=== PATIENT | male | born 1945 | race Caucasian/White ===

== ENCOUNTER 2017-03-21 20:03 | Emergency (ER) | payer BC, MEDICARE ==
[~2017-03-21 20:03] MED LIST: LANTUSP SQ; LORA0.5T PO; [UNRECOGNIZED DRUG - OTHER] SC
[2017-03-21 20:09] VITALS: BP 128/73; PULSE 125; RESP 20; TEMP 98.9; O2SAT 95
[2017-03-21 20:50] VITALS: BP 161/87; PULSE 101; RESP 18; O2SAT 96
[2017-03-21] MEDS ORDERED: METO25TA3 PO ×2 (20:50)
[2017-03-21] MEDS ORDERED: ZITH250T PO (20:50)
[2017-03-21] MEDS ORDERED: BENZ100 PO (20:50)
[2017-03-21] MEDS ORDERED: ASPI81CH37 CHEW (20:50)
[2017-03-21] MEDS ORDERED: APIDINJ SQ (20:50)
[2017-03-21] MEDS ORDERED: LANTUS2P SQ (20:50)
--- NOTE | 2017-03-21 21:22 | PD ---
HPI Chief Complaint: Cold / Flu Symptoms Time Seen by Provider: 21:10 Travel History International Travel<30 days: No Contact w/Intl Traveler<30days: No Traveled to known affect area: No History of Present Illness HPI This 71-year-old male is complaining of being sick since Sunday. He is having generalized myalgias, headache and cough. He feels like he is congested. He's been sick since Sunday. Sunday he went to [place] urgent care and was given prescription for Z-Golden and Tessalon Perles. He has not had any response to this. He did have a flu test done on that date which was negative. He has a history of diabetes for 6-7 years and is on insulin shots. He also has hypertension. He does feel short of breath with exertion. [facility] Past Medical History Diabetes: Yes Patient Takes Glucophage: No Diminished Hearing: No Hypertension: Yes Immunizations Current: Yes Tetanus Vaccination: Unknown Influenza Vaccination: Yes Past Surgical History Cholecystectomy: Yes Prostatectomy: Yes Social History Alcohol Use: No Tobacco Use: No Substance Use: No Allergies-Medications (Allergen,Severity, Reaction): Coded Allergies: No Known Allergies (Unverified , 03/21/17) Reported Meds & Prescriptions Reported Meds & Active Scripts Active Reported Aspirin Low Dose (Aspirin) 81 Mg Chew 81 Mg CHEW DAILY Metoprolol Tartrate 25 Mg Tab 25 Mg PO DAILY Metoprolol Tartrate 25 Mg Tab 25 Mg PO BID Apidra Inj (Insulin Glulisine Inj) 1,000 Unit/10 Ml Vial 24 Units SQ TID Lantus Inj (Insulin Glargine) 1,000 Unit/10 Ml Vial 60 Units SQ HS Tessalon Perles (Benzonatate) 100 Mg Cap 100 Mg PO TID PRN Zithromax (Azithromycin) 250 Mg Tab 250 Mg PO DIRECTED Take 2 tabs (500 mg) on day 1 then 1 tab daily x 4 days. Review of Systems General / Constitutional: Positive: Fever, Chills Eyes: No: Diploplia, Blurred Vision HENT: Positive: Headaches Cardiovascular: No: Chest Pain or Discomfort, Palpitations Respiratory: Positive: Cough, Shortness of Breath Gastrointestinal: No: Nausea, Vomiting Genitourinary: No: Urgency, Frequency Neurologic: No: Weakness, Dizziness Psychiatric: No: Anxiety Physical Exam Narrative GENERAL: Well-developed male SKIN: Focused skin assessment warm/dry. HEAD: Atraumatic. Normocephalic. EYES: Pupils equal and round. No scleral icterus. No injection or drainage. ENT: No nasal bleeding or discharge. Mucous membranes pink and moist. NECK: Trachea midline. No JVD. CARDIOVASCULAR: Regular rate and rhythm. No murmur appreciated. RESPIRATORY: No accessory muscle use. There are scattered rhonchi Breath sounds equal bilaterally. GASTROINTESTINAL: Abdomen soft, non-tender, nondistended. Hepatic and splenic margins not palpable. MUSCULOSKELETAL: No obvious deformities. No clubbing. No cyanosis. No edema. NEUROLOGICAL: Awake and alert. No obvious cranial nerve deficits. Motor grossly within normal limits. Normal speech. PSYCHIATRIC: Appropriate mood and affect; insight and judgment normal. Data Data Last Documented VS Vital Signs Date Time Temp Pulse Resp B/P (MAP) Pulse Ox O2 Delivery O2 Flow Rate FiO2 03/21/17 20:50 101 96 Room Air 03/21/17 20:50 18 161/87 (111) 03/21/17 20:09 98.9 Orders Orders Complete Blood Count With Diff (03/21/17 21:19) Basic Metabolic Panel (Bmp) (03/21/17 21:19) Chest, Pa & Lat (03/21/17 21:19) Albuterol Neb (Albuterol Neb) (03/21/17 21:30) Labs Laboratory Tests Test 03/21/17 21:45 White Blood Count 11.2 TH/MM3 Red Blood Count 5.68 MIL/MM3 Hemoglobin 17.1 GM/DL Hematocrit 50.5 % Mean Corpuscular Volume 88.9 FL Mean Corpuscular Hemoglobin 30.2 PG Mean Corpuscular Hemoglobin Concent 33.9 % Red Cell Distribution Width 13.3 % Platelet Count 257 TH/MM3 Mean Platelet Volume 7.9 FL Neutrophils (%) (Auto) 61.9 % Lymphocytes (%) (Auto) 20.3 % Monocytes (%) (Auto) 10.9 % Eosinophils (%) (Auto) 4.5 % Basophils (%) (Auto) 2.4 % Neutrophils # (Auto) 6.9 TH/MM3 Lymphocytes # (Auto) 2.3 TH/MM3 Monocytes # (Auto) 1.2 TH/MM3 Eosinophils # (Auto) 0.5 TH/MM3 Basophils # (Auto) 0.3 TH/MM3 CBC Comment DIFF FINAL Differential Comment Blood Urea Nitrogen 14 MG/DL Creatinine 1.20 MG/DL Random Glucose 389 MG/DL Calcium Level 9.1 MG/DL Sodium Level 134 MEQ/L Potassium Level 3.6 MEQ/L Chloride Level 101 MEQ/L Carbon Dioxide Level 23.8 MEQ/L Anion Gap 9 MEQ/L Estimat Glomerular Filtration Rate 60 ML/MIN MDM Medical Decision Making Medical Screen Exam Complete: Yes Emergency Medical Condition: Yes Medical Record Reviewed: Yes Differential Diagnosis Differential includes influenza, pneumonia, URI Narrative Course X-rays read as negative. There is a little bit of streaking in the left side of the lung. White count is slightly elevated at 11,000 patient may have a partially treated pneumonia. He will be given a week's worth of Augmentin to take in addition to Zithromax he did benefit from a nebulizer treatment and will also be given a prescription for albuterol. Impression is acute bronchitis , possible early pneumonia Diagnosis Primary Impression: Acute bronchitis Qualified Codes: J20.9 - Acute bronchitis, unspecified Scripts Albuterol 18 GM Inh (Ventolin Hfa 18 GM Inh) 90 Mcg/Act Aer 2 PUFF INH Q4-6H Y for SHORTNESS OF BREATH, #1 INHALER 0 Refills Prov: Weston Vargas MD 03/21/17 Amoxicillin-Clavulanate (Augmentin) 500-125 mg Tab 500 MG PO Q8H for Infection for 7 Days, TAB 0 Refills Prov: Weston Vargas MD 03/21/17 Disposition: 01 DISCHARGE HOME Condition: Stable Weston Vargas MD Mar 21, 2017 21:22
[2017-03-21] MEDS ORDERED: RESP: ALBUTEROL 2.5 MG/3 ML NEB (SCH) NEB ONE (21:30)
[2017-03-21 21:56] LABS: AUTOMATED NEUTROPHIL # 6.9 TH/MM3 (1.8-7.7); BASOPHIL # 0.3 TH/MM3 (0-0.2); BASOPHIL % 2.4 % (0.0-2.0); EOSINOPHIL # 0.5 TH/MM3 (0-0.4); EOSINOPHIL % 4.5 % (0.0-4.0); HEMATOCRIT 50.5 % (39.0-51.0); HEMO FLAGS DIFF FINAL; LYMPH % 20.3 % (9.0-44.0); LYMPHOCYTE # 2.3 TH/MM3 (1.0-4.8); MEAN CELL VOLUME 88.9 FL (80.0-100.0); MEAN CORPUSCULAR HEMOGLOBIN 30.2 PG (27.0-34.0); MEAN CORPUSCULAR HGB CONC 33.9 % (32.0-36.0); MONO % 10.9 % (0.0-8.0); NEUT % 61.9 % (16.0-70.0); PLATELET COUNT 257 TH/MM3 (150-450); RED BLOOD COUNT 5.68 MIL/MM3 (4.50-5.90); RED CELL DISTRIBUTION WIDTH 13.3 % (11.6-17.2); WHITE BLOOD COUNT 11.2 TH/MM3 (4.0-11.0)
--- NOTE | 2017-03-21 21:57 | RADRPT ---
EXAM DATE/TIME: 03/21/2017 21:27 [facility] COMPARISON: No previous studies available for comparison. INDICATIONS : Flu-like symptoms for 5 days MEDICAL HISTORY : None. SURGICAL HISTORY : None. ENCOUNTER: Initial ACUITY: 4 - 6 days PAIN SCORE: 0/10 LOCATION: Bilateral chest FINDINGS: PA and lateral views of the chest demonstrate the lungs to be symmetrically aerated without evidence of mass, infiltrate or effusion. The cardiomediastinal contours are unremarkable. Osseous structure s are intact. CONCLUSION: No evidence of acute cardiopulmonary disease. Rahul Baldwin MD on March 21, 2017 at 21:55 Board Certified Radiologist. This report was verified electronically.
[2017-03-21 22:05] LABS: POTASSIUM 3.6 MEQ/L (3.5-5.1)
[2017-03-21 22:08] LABS: BICARBONATE 23.8 MEQ/L (21.0-32.0)
[2017-03-21] MEDS ORDERED: VENTAER INH (22:30)
[2017-03-21] MEDS ORDERED: AUGM500T7 PO (22:30)
[2017-03-21] MEDS ORDERED: AMOXICILLIN/CLAVULANATE K 500 MG TAB PO ONE (22:30)
[2017-03-21 22:37] VITALS: BP 158/86; PULSE 92; RESP 18; O2SAT 97
== END 2017-03-21 22:49 | disposition home or self-care (01) ==
LOC: PHED 20:03
DX: J20.9 Acute bronchitis, unspecified (principal); E11.9 Type 2 diabetes mellitus without complications; I10 Essential (primary) hypertension
CPT/HCPCS: 71020; 80048; 85025; 94664; 99284; J7613

== ENCOUNTER 2017-03-30 15:37 | Inpatient (IN) | payer MEDICARE ==
[2017-03-30] VITALS (9 sets, daily range): BP systolic 124–170; BP diastolic 70–85; PULSE 70–99; RESP 18–20; TEMP 95.9–97.4; O2SAT 96–98
[~2017-03-30 15:37] MED LIST changes: +APIDINJ SQ; +ASPI81CH37 CHEW; +AUGM500T7 PO; +BENZ100 PO; +LANTUS2P SQ; -LANTUSP SQ; -LORA0.5T PO; +METO25TA3 PO; +VENTAER INH; +ZITH250T PO; -[UNRECOGNIZED DRUG - OTHER] SC
[2017-03-30] MEDS ORDERED: ASPIRIN 81 MG CHEW TAB PO ONE (16:15)
[2017-03-30] MEDS ORDERED: SODIUM CHLORIDE 0.9% FLUSH 10 ML FLUSH IVF PRN (16:15)
[2017-03-30 16:23] LABS: AUTOMATED NEUTROPHIL # 6.2 TH/MM3 (1.8-7.7); BASOPHIL # 0.1 TH/MM3 (0-0.2); BASOPHIL % 1.2 % (0.0-2.0); EOSINOPHIL # 0.1 TH/MM3 (0-0.4); EOSINOPHIL % 0.9 % (0.0-4.0); HEMATOCRIT 47.3 % (39.0-51.0); LYMPH % 12.7 % (9.0-44.0); MEAN CELL VOLUME 90.3 FL (80.0-100.0); MEAN CORPUSCULAR HEMOGLOBIN 29.9 PG (27.0-34.0); MEAN CORPUSCULAR HGB CONC 33.1 % (32.0-36.0); MONO % 5.3 % (0.0-8.0); NEUT % 79.9 % (16.0-70.0); PLATELET COUNT 254 TH/MM3 (150-450); RED BLOOD COUNT 5.23 MIL/MM3 (4.50-5.90); RED CELL DISTRIBUTION WIDTH 13.8 % (11.6-17.2); WHITE BLOOD COUNT 7.8 TH/MM3 (4.0-11.0)
--- NOTE | 2017-03-30 16:26 | PD ---
HPI Chief Complaint: Chest Pain Time Seen by Provider: 16:00 Travel History International Travel<30 days: No Contact w/Intl Traveler<30days: No Traveled to known affect area: No History of Present Illness HPI 71-year-old male with history of CAD, 2 cardiac stents, hypertension, diabetes, here for evaluation of chest pain. The patient was recently diagnosed with pneumonia and treated with antibiotics. His pneumonia symptoms of shortness of breath and cough have improved. He states that for the last week he has been having intermittent pain in his bilateral shoulders that radiate down his bilateral arms. He states that this usually occurs with exertion. Today on exertion about an hour and a half prior to arrival he began to experience substernal chest pressure. He states that the bilateral shoulder pain is very similar pain that he experienced with his previous CO. No paresthesias or motor deficits. No dyspnea. No hemoptysis. No history of DVT or PE. The patient is from [place] and has no local physicians. He took two 81mg ASA [employer]. PFSH Past Medical History Cardiovascular Problems: Yes Diabetes: Yes Patient Takes Glucophage: No Diminished Hearing: No Hypertension: Yes Immunizations Current: Yes Past Surgical History Cholecystectomy: Yes Prostatectomy: Yes Social History Alcohol Use: Yes Tobacco Use: No Substance Use: No Allergies-Medications (Allergen,Severity, Reaction): Coded Allergies: No Known Allergies (Unverified , 03/30/17) Reported Meds & Prescriptions Reported Meds & Active Scripts Active Ventolin Hfa 18 GM Inh (Albuterol Sulfate) 90 Mcg/Act Aer 2 Puff INH Q4-6H PRN Reported Aspirin Low Dose (Aspirin) 81 Mg Chew 81 Mg CHEW DAILY Metoprolol Tartrate 25 Mg Tab 25 Mg PO DAILY Metoprolol Tartrate 25 Mg Tab 25 Mg PO BID Apidra Inj (Insulin Glulisine Inj) 1,000 Unit/10 Ml Vial 24 Units SQ TID Lantus Inj (Insulin Glargine) 1,000 Unit/10 Ml Vial 60 Units SQ HS Tessalon Perles (Benzonatate) 100 Mg Cap 100 Mg PO TID PRN Zithromax (Azithromycin) 250 Mg Tab 250 Mg PO DIRECTED Take 2 tabs (500 mg) on day 1 then 1 tab daily x 4 days. Review of Systems Except as stated in HPI: all other systems reviewed are Neg Physical Exam Narrative GENERAL: Well-developed, well-nourished, comfortable, no apparent distress. SKIN: Focused skin assessment warm/dry. HEAD: Atraumatic. Normocephalic. EYES: Pupils equal and round. No scleral icterus. No injection or drainage. ENT: Mucous membranes pink and moist. NECK: Trachea midline. No JVD. CARDIOVASCULAR: Regular rate and rhythm. Distal pulses brisk and equal bilaterally. RESPIRATORY: No accessory muscle use. Clear to auscultation. Breath sounds equal bilaterally. GASTROINTESTINAL: Abdomen soft, non-tender, nondistended. MUSCULOSKELETAL: No obvious deformities. No clubbing. No cyanosis. No edema. NEUROLOGICAL: Awake and alert. No obvious cranial nerve deficits. Motor grossly within normal limits. Normal speech. PSYCHIATRIC: Appropriate mood and affect; insight and judgment normal. Data Data Last Documented VS Vital Signs Date Time Temp Pulse Resp B/P (MAP) Pulse Ox O2 Delivery O2 Flow Rate FiO2 03/30/17 17:24 91 20 134/71 (92) 96 03/30/17 15:47 97.4 Orders Orders Electrocardiogram (03/30/17 16:07) Basic Metabolic Panel (Bmp) (03/30/17 16:07) Ckmb (Isoenzyme) Profile (03/30/17 16:07) Complete Blood Count With Diff (03/30/17 16:07) Prothrombin Time / Inr (Pt) (03/30/17 16:07) Act Partial Throm Time (Ptt) (03/30/17 16:07) Troponin I (03/30/17 16:07) Chest, Single Ap (03/30/17 16:07) Ecg Monitoring (03/30/17 16:07) Bilateral Bp Monitoring (03/30/17 16:07) Iv Access Insert/Monitor (03/30/17 16:07) Oximetry (03/30/17 16:07) Aspirin Chew (Aspirin Chew) (03/30/17 16:15) Sodium Chloride 0.9% Flush (Ns Flush) (03/30/17 16:15) Insulin Human Regular Inj (Novolin R Inj (03/30/17 18:00) Labs Laboratory Tests Test 03/30/17 16:20 03/30/17 16:48 White Blood Count 7.8 TH/MM3 Red Blood Count 5.23 MIL/MM3 Hemoglobin 15.7 GM/DL Hematocrit 47.3 % Mean Corpuscular Volume 90.3 FL Mean Corpuscular Hemoglobin 29.9 PG Mean Corpuscular Hemoglobin Concent 33.1 % Red Cell Distribution Width 13.8 % Platelet Count 254 TH/MM3 Mean Platelet Volume 8.3 FL Neutrophils (%) (Auto) 79.9 % Lymphocytes (%) (Auto) 12.7 % Monocytes (%) (Auto) 5.3 % Eosinophils (%) (Auto) 0.9 % Basophils (%) (Auto) 1.2 % Neutrophils # (Auto) 6.2 TH/MM3 Lymphocytes # (Auto) 1.0 TH/MM3 Monocytes # (Auto) 0.4 TH/MM3 Eosinophils # (Auto) 0.1 TH/MM3 Basophils # (Auto) 0.1 TH/MM3 CBC Comment DIFF FINAL Differential Comment Prothrombin Time 11.1 SEC Prothromb Time International Ratio 1.0 RATIO Activated Partial Thromboplast Time 26.8 SEC Blood Urea Nitrogen 16 MG/DL Creatinine 1.10 MG/DL Random Glucose 477 MG/DL Calcium Level 8.9 MG/DL Sodium Level 130 MEQ/L Potassium Level 4.3 MEQ/L Chloride Level 99 MEQ/L Carbon Dioxide Level 20.8 MEQ/L Anion Gap 10 MEQ/L Estimat Glomerular Filtration Rate 66 ML/MIN Total Creatine Kinase 77 U/L Troponin I 0.02 NG/ML [facility] Medical Decision Making Medical Screen Exam Complete: Yes Emergency Medical Condition: Yes Interpretation(s) EKG: Sinus, rate 89, normal axis, normal intervals, no acute ischemic abnormality. Differential Diagnosis ACS, pneumothorax, pericarditis, PE, pneumonia Narrative Course Vital signs show heart rate 90, blood pressure 140/81, pulse ox 98% on room air , oral temp of 97.4F. CBC is unremarkable. BMP is remarkable for sodium 130, random glucose 477. Bicarbonate is slightly low at 20.8. I do not believe he is in DKA. Cardiac enzymes Chest x-ray: Minimal right lung base atelectasis. The patient took two 81mg ASA today and was given another 2 after arriving to the emergency department. He has been chest pain-free while in the emergency Department, however reports that if he exerts himself his pain will return. The patient has history of heart disease with 2 coronary stents as well as several risk factors for coronary artery disease. Patient was given 10 units of IV insulin for his hyperglycemia. He was made aware of all findings and will be admitted to the chest pain center for further cardiac evaluation. He is amenable to this plan. Case discussed with hospitalist Dr Veliz who will admit the patient to her service. Diagnosis Primary Impression: Chest pain Qualified Codes: R07.9 - Chest pain, unspecified Additional Impression: Hyperglycemia Admitting Information Admitting Physician Requests: Manny Armando MD Mar 30, 2017 16:26
[2017-03-30 16:29] LABS: HEMO FLAGS DIFF FINAL
--- NOTE | 2017-03-30 16:48 | RADRPT ---
EXAM DATE/TIME: 03/30/2017 16:23 [facility] COMPARISON: CHEST SINGLE AP, April 10, 2012, 21:52. INDICATIONS : Chest pain. MEDICAL HISTORY : None. SURGICAL HISTORY : None. ENCOUNTER: Initial ACUITY: 1 day PAIN SCORE: 7/10 LOCATION: Bilateral chest FINDINGS: Minimal linear opacity in the right lung base. No new focal pleural or parenchymal opacities. Cardiom ediastinal contours are within normal limits. Bony thorax is intact. CONCLUSION: 1. Minimal right lung base atelectasis. Tomas Alexander MD on March 30, 2017 at 16:46 Board Certified Radiologist. This report was verified electronically.
[2017-03-30 17:05] LABS: POTASSIUM 4.3 MEQ/L (3.5-5.1)
[2017-03-30 17:09] LABS: BICARBONATE 20.8 MEQ/L (21.0-32.0)
[2017-03-30 17:11] LABS: APTT (PATIENT) 26.8 SEC (24.3-30.1); PROTHROMBIN TIME - PATIENT 11.1 SEC (9.8-11.6)
[2017-03-30] MEDS ORDERED: INSULIN HUMAN REGULAR 1,000 UNITS/10 ML VIAL IV PUSH ONE (18:00)
[2017-03-30] MEDS ORDERED: GLUCAGON 1 MG/ML VIAL OTHER PRN (18:30)
[2017-03-30] MEDS ORDERED: SODIUM CHLORIDE 0.9% FLUSH 10 ML FLUSH IV FLUSH PRN (18:30)
[2017-03-30] MEDS ORDERED: DEXTROSE 50% IN WATER 50 ML VIAL(D50) IV PUSH PRN (18:30)
[2017-03-30] MEDS ORDERED: ONDANSETRON HCL 4 MG/2 ML VIAL IV PUSH PRN (18:30)
[2017-03-30] MEDS ORDERED: NITROGLYCERIN 0.4 MG SL 25 TABS/BTL SL PRN (18:30)
[2017-03-30] MEDS ORDERED: BENZONATATE 100 MG CAP PO PRN (18:45)
[2017-03-30] MEDS ORDERED: ALBUTEROL SULFATE 90 MCG/ACT HFA 8 GM INHALER INH PRN (18:45)
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
[2017-03-30] MEDS: METOPROLOL TARTRATE 25 MG TAB PO SCH (21:00)
[2017-03-30] MEDS ORDERED: INSULIN DETEMIR 100 UNITS/ML VIAL SQ SCH (21:00)
[2017-03-30] MEDS: INSULIN ASPART SUPPLEMENTAL SCALE SQ SCH (22:23)
[2017-03-30] MEDS: SODIUM CHLORIDE 0.9% FLUSH 10 ML FLUSH IV FLUSH SCH (22:24)
[2017-03-30] MEDS: diphenhydrAMINE HCL 25 MG CAP PO PRN (23:01)
[2017-03-30] MEDS: ACETAMINOPHEN 500 MG CPLT PO PRN (23:01)
[2017-03-31] VITALS (16 sets, daily range): BP systolic 121–172; BP diastolic 64–93; PULSE 58–80; RESP 16–20; TEMP 95.8–98.4; O2SAT 97–98
--- NOTE | 2017-03-31 05:02 | EKG ---
Date Performed: 03/30/2017 Time Performed: 21:52:12 PTAGE: 71 years EKG: Sinus rhythm NORMAL ECG PREVIOUS TRACING : 03/30/2017 16.11 DOCTOR: John Handy Interpretating Date/Time 03/31/2017 05:02:08
--- NOTE | 2017-03-31 05:10 | EKG ---
Date Performed: 03/30/2017 Time Performed: 16:11:27 PTAGE: 71 years EKG: Sinus rhythm NORMAL ECG PREVIOUS TRACING : 04/10/2012 21.02 DOCTOR: John Handy Interpretating Date/Time 03/31/2017 05:05:34
[2017-03-31] MEDS: INSULIN ASPART SUPPLEMENTAL SCALE SQ SCH ×4 (08:00→20:49)
[2017-03-31] MEDS: METOPROLOL TARTRATE 25 MG TAB PO SCH ×2 (08:14→20:47)
[2017-03-31] MEDS: SODIUM CHLORIDE 0.9% FLUSH 10 ML FLUSH IV FLUSH SCH ×2 (08:15→20:48)
[2017-03-31] MEDS: INSULIN GLULISINE SQ SCH ×2 (08:15→18:00)
--- NOTE | 2017-03-31 08:19 | HHI.PR ---
Subjective Remarks Follow-up for chest pain and dyspnea. Patient denies any recurrence of chest pain or shoulder pain overnight. Denies any recurrence of shortness of breath overnight. He states he slept well. He states that he thinks he has a blockage. Objective Vitals Vital Signs Date Time Temp Pulse Resp B/P (MAP) Pulse Ox O2 Delivery O2 Flow Rate FiO2 03/31/17 05:36 97.4 78 20 161/87 (111) 98 03/31/17 02:00 144/74 (97) 03/31/17 00:00 95.8 73 20 172/93 (119) 97 03/30/17 23:00 73 03/30/17 20:23 90 18 141/80 (100) 97 Room Air 03/30/17 20:10 03/30/17 20:00 95.9 70 20 153/85 (107) 97 03/30/17 19:22 97 21 03/30/17 18:50 88 18 124/71 (88) 97 Room Air 03/30/17 17:24 91 20 134/71 (92) 96 03/30/17 16:17 90 20 140/81 (100) 98 145/70 (95) 03/30/17 16:11 96 03/30/17 15:47 97.4 99 20 170/80 (110) 98 I/O 03/30/17 03/30/17 03/30/17 03/31/17 03/31/17 03/31/17 07:00 15:00 23:00 07:00 15:00 23:00 Intake Total 360 ml Balance 360 ml Intake Oral 360 ml # Voids 3 Result Diagram: 03/30/17 1620 03/30/17 1648 Objective Remarks GENERAL: Pleasant well-developed well-nourished patient in no apparent distress. SKIN: Warm and dry. CARDIOVASCULAR: Regular rate and rhythm. No murmurs. RESPIRATORY: No accessory muscle use. Minimal crackles over the Right base which clear with coughing. GASTROINTESTINAL: Abdomen soft, non-tender, nondistended. MUSCULOSKELETAL: No lower extremity edema bilaterally. NEUROLOGICAL: Awake and alert. Normal speech. PSYCHIATRIC: Appropriate mood and affect; insight and judgment normal. Urinary Catheter: No Vascular Central Line Catheter: No A/P Problem List: (1) Chest pain ICD Code: R07.9 - Chest pain, unspecified Status: Acute (2) Dyspnea ICD Code: R06.00 - Dyspnea, unspecified Status: Acute (3) HTN (hypertension) ICD Code: I10 - Essential (primary) hypertension Status: Acute (4) Hyperglycemia ICD Code: R73.9 - Hyperglycemia, unspecified Status: Acute (5) DM2 (diabetes mellitus, type 2) ICD Code: E11.9 - Type 2 diabetes mellitus without complications (6) CAD (coronary artery disease) ICD Code: I25.10 - Atherosclerotic heart disease of [place] coronary artery without angina pectoris Assessment and Plan 71-year-old male with: Chest pain/Dyspnea: Worrisome for stable angina versus acute coronary syndrome. Patient does have known coronary disease; geophysical computer is in [place]. -EKGs 2 personally interpreted with normal sinus rhythm and no evidence of ischemia. -Troponin trended upward over 5 hours from 0.02-->0.04-->0.05. Because of this will obtain another EKG and set of cardiac enzymes this morning to make sure it has remained stable prior to stress testing. -Troponin obtained this morning decreased to 0.04. EKG #3 personally interpreted with sinus bradycardia, septal T wave inversion, and biphasic T waves anteriorly. Will order nuclear stress test. -Chest x-ray personally interpreted without evidence of cardiomegaly or consolidation. Radiologist indicates minimal R lung base atelectasis. Patient had minimal crackles on exam in this area which cleared with coughing. Order IS. -Continue beta eduin -325 mg po daily aspirin -Nitro SL prn chest pain -Follow-up Echo -Telemetry CAD: Patient with 2 stents from a similar episode to what he has described earlier. -Patient will continue with his aspirin, beta eduin and we'll follow on telemetry -Lipid profile ordered HTN: BP fluctuated yesterday but has become more persistently elevated overnight. -Continue metoprolol -Clonidine and enalapril prn for SBP/DBP >/= 160/90. -If remains elevated today may benefit from addition of BRYON inhibitor due to comorbidities. Diabetes Mellitus, Type 2: with hyperglycemia of 477 on presentation. Pseudohyponatremia present. Patient received 10 units of regular insulin in ED and 60 units Levemir and 3 units of Novolog last night. -BGL improved at 118 this morning. Continue bedside Accu-Cheks with sliding scale insulin. -Since patient is currently nothing by mouth, will hold his Apidra. -Repeat BMP this morning with resolved hyponatremia -Hemoglobin A1c ordered Hypokalemia: K+ 3.2. -40 mEq po KCl ordered. -Mg level 2.1. -Repeat serum K+ level at 1500 hours normal at 3.6. GI prophylaxis: Pepcid 20 mg po bid. DVT prophylaxis: SCDs; start heparin sq bid. Update: Myocardial perfusion scan positive with mild in severity, small in size reversible perfusion defect involving the anterior wall. Dr. Juares requests patient be transferred to the main hospital. Catheterization will occur Sunday. Cardiology consulted and transfer order placed. Will order diabetic heart healthy diet now and make patient nothing by mouth after midnight tomorrow night. Patient's BGLs have been in the 1 teens today due to nothing by mouth status. He is currently on 60 units of Levemir at night, but will decrease this to 30 units. Can continue Apidra if patient has available and use SSI as needed. Patient discussed with Dr. Veliz. Problem Qualifiers (1) Chest pain: Qualified Codes: R07.9 - Chest pain, unspecified Renae Mooney Mar 31, 2017 08:19
[2017-03-31] MEDS ORDERED: cloNIDine HCL 0.1 MG TAB PO PRN (09:15)
[2017-03-31] MEDS ORDERED: ENALAPRILAT 1.25 MG/ML VIAL IV PUSH PRN (09:15)
[2017-03-31] MEDS: FAMOTIDINE 20 MG TAB PO SCH ×2 (09:39→20:47)
[2017-03-31] MEDS: ASPIRIN EC 325 MG TABEC PO SCH (09:39)
[2017-03-31 10:09] LABS: BICARBONATE 25.7 MEQ/L (21.0-32.0); POTASSIUM 3.2 MEQ/L (3.5-5.1)
[2017-03-31] MEDS ORDERED: POTASSIUM CHLORIDE 20 MEQ CONTROLLED RELEASE TAB PO ONE (10:30)
[2017-03-31] MEDS ORDERED: REGADENOSON INJ 0.4 MG/5 ML SYR IV ONE (13:14)
--- NOTE | 2017-03-31 14:12 | EKG ---
Date Performed: 03/31/2017 Time Performed: 09:36:36 PTAGE: 71 years EKG: SINUS BRADYCARDIA NONSPECIFIC T-WAVE ABNORMALITY BORDERLINE ECG PREVIOUS TRACING : 03/30/2017 21.52 Compared to previous tracing,STT changes are new. DOCTOR: Venkat Bowen Interpretating Date/Time 03/31/2017 14:11:09
--- NOTE | 2017-03-31 14:13 | RADRPT ---
EXAM DATE/TIME: 03/31/2017 13:03 [facility] COMPARISON: No previous studies available for comparison. INDICATIONS : Substernal chest pain with dyspnea. Angina. Coronary artery disease. DOSE: 35 mCi Tc99m Myoview at stress. 11 mCi Tc99m Myoview at rest. 0.4 mg Lexiscan STRESS SYMPTOMS: Dyspnea and flushed. EJECTION FRACTION: 59% MEDICAL HISTORY : Hypertension. Diabetes mellitus type 2. SURGICAL HISTORY : Coronary artery stent. Rotator cuff, left. ENCOUNTER: Initial ACUITY: 2 days PAIN SCALE: 7/10 LOCATION: Substernal chest TECHNIQUE: The patient underwent pharmacologic stress with infusion of prescribed dose. Continuous ECG tracing was monitored during stress. Gated SPECT imaging was performed after stress and conventional SPECT i maging was performed at rest. The examination was performed on a SPECT/CT scanner, both attenuation and non-corrected datasets were reviewed. FINDINGS: DISTRIBUTION: The maximum perfused segment at stress is in the anterolateral wall. PERFUSION STUDY: The examination demonstrates a mild in severity, reversible perfusion defect involving the anterior w all. There is no associated wall motion abnormality. GATED STUDY: There is intact wall motion and thickening without hypokinetic or dyskinetic segments. CONCLUSION: 1. Mild in severity, small in size, reversible perfusion defect involving the anterior wall. The over all suspicion is low however, stress-induced myocardial ischemia is not excluded. RISK CATEGORY: Low (<1% Annual Mortality Rate) Jerod Leigh MD on March 31, 2017 at 14:08 Board Certified Radiologist. This report was verified electronically.
[2017-03-31 15:29] LABS: POTASSIUM 3.6 MEQ/L (3.5-5.1)
[2017-03-31 15:32] LABS: MAGNESIUM 2.1 MG/DL (1.5-2.5)
[2017-03-31] MEDS: HEPARIN SODIUM - SQ 10,000 UNITS/ML VIAL SQ SCH (16:44)
[2017-03-31] MEDS: diphenhydrAMINE HCL 25 MG CAP PO PRN (20:47)
[2017-03-31] MEDS: ACETAMINOPHEN 500 MG CPLT PO PRN (20:47)
[2017-03-31] MEDS: INSULIN DETEMIR 100 UNITS/ML VIAL SQ SCH (20:49)
[2017-04-01] VITALS (23 sets, daily range): BP systolic 112–150; BP diastolic 54–83; PULSE 54–83; RESP 16–18; TEMP 97.7–98.6; O2SAT 96–98
[2017-04-01] MEDS: HEPARIN SODIUM - SQ 10,000 UNITS/ML VIAL SQ SCH ×2 (05:07→18:13)
[2017-04-01 06:42] LABS: HDL CHOLESTEROL 35.3 MG/DL (40.0-60.0)
[2017-04-01] MEDS: INSULIN ASPART SUPPLEMENTAL SCALE SQ SCH ×4 (08:00→21:00)
[2017-04-01] MEDS: SODIUM CHLORIDE 0.9% FLUSH 10 ML FLUSH IV FLUSH SCH ×2 (08:25→21:10)
[2017-04-01] MEDS: ASPIRIN EC 325 MG TABEC PO SCH (08:25)
[2017-04-01] MEDS: FAMOTIDINE 20 MG TAB PO SCH ×2 (08:25→21:09)
[2017-04-01] MEDS: METOPROLOL TARTRATE 25 MG TAB PO SCH ×2 (08:25→21:09)
[2017-04-01] MEDS: INSULIN GLULISINE SQ SCH ×3 (08:26→17:45)
--- NOTE | 2017-04-01 11:11 | HHI.PR ---
Subjective Remarks Patient concerned about being nothing by mouth, is a diabetic BG this morning was 95 Plan for heart catheter however possibility of doing it today, I discussed with the nurse we will verify with Dr. jane the orbitread operator I will check acute Accu-Chek now if it's less than 100 will start D5 until getting confirmation about timing of the heart catheter Patient denied chest pain or short of breath currently or overnight Objective Vitals Vital Signs Date Time Temp Pulse Resp B/P (MAP) Pulse Ox O2 Delivery O2 Flow Rate FiO2 04/01/17 08:30 98 21 04/01/17 05:16 59 04/01/17 04:22 56 04/01/17 03:20 98.6 62 16 150/83 (105) 97 04/01/17 03:00 56 04/01/17 02:00 56 04/01/17 01:20 54 04/01/17 00:36 56 03/31/17 23:30 98.1 58 16 130/79 (96) 97 03/31/17 23:00 58 03/31/17 22:00 80 03/31/17 21:10 65 03/31/17 20:10 65 03/31/17 19:20 98.4 67 16 122/74 (90) 97 03/31/17 19:20 64 03/31/17 19:20 98.4 67 16 122/74 (90) 97 03/31/17 19:00 65 03/31/17 18:23 98.2 66 18 121/64 (83) 03/31/17 17:00 64 03/31/17 13:35 97.3 59 20 127/69 (88) 98 I/O 03/31/17 03/31/17 03/31/17 04/01/17 04/01/17 04/01/17 06:59 14:59 22:59 06:59 14:59 22:59 Intake Total 360 ml 240 ml 240 ml Balance 360 ml 240 ml 240 ml Intake Oral 360 ml 240 ml 240 ml # Voids 3 2 Result Diagram: 03/30/17 5990 03/31/17 6988 Objective Remarks GENERAL: This is a well-nourished, well-developed patient, in no apparent distress. SKIN: No rashes, warm and dry HEAD: Atraumatic. Normocephalic. EYES: Pupils equal round and reactive. Extraocular motions intact. No scleral icterus. ENT: Nose without bleeding, or drainage, Airway patent. NECK: Trachea midline. Supple CARDIOVASCULAR: Regular rate and rhythm without murmurs, gallops, or rubs. RESPIRATORY: Fair air entry bilaterally. No wheezes, rales, or rhonchi. GASTROINTESTINAL: Abdomen soft, non-tender, nondistended. Positive bowel sounds MUSCULOSKELETAL: Extremities without clubbing, cyanosis, or edema. Pedal pulses appreciated NEUROLOGICAL: Awake and alert. Moves all extremity. Normal speech.no focal neurological deficit A/P Problem List: (1) Chest pain ICD Code: R07.9 - Chest pain, unspecified Status: Acute (2) Dyspnea ICD Code: R06.00 - Dyspnea, unspecified Status: Acute (3) HTN (hypertension) ICD Code: I10 - Essential (primary) hypertension Status: Acute (4) Hyperglycemia ICD Code: R73.9 - Hyperglycemia, unspecified Status: Acute (5) DM2 (diabetes mellitus, type 2) ICD Code: E11.9 - Type 2 diabetes mellitus without complications (6) CAD (coronary artery disease) ICD Code: I25.10 - Atherosclerotic heart disease of [place] coronary artery without angina pectoris Assessment and Plan 04/01: Discussed with the nurse will verify with the orbitread operator regarding the heart catheter timing, if no heart catheter today will resume diabetic diet, otherwise will do stat Accu-Chek if BG less than 100 will start D5 iv fluid A/P: 71-year-old male with: Chest pain/Dyspnea: Rule out ACS Worrisome for stable angina versus acute coronary syndrome. Patient does have known coronary disease; orbitread operator is in [place]. -Positive troponin and stress nuclear testing>> patient was transferred [facility] for heart catheter -Continue beta eduin -325 mg po daily aspirin -Nitro SL prn chest pain -Follow-up Echo -Telemetry CAD: Patient with 2 stents from a similar episode to what he has described earlier. -continue with his aspirin, beta eduin and we'll follow on telemetry -Lipid profile reviewed HDL 35, TG 155 HTN: BP fluctuated yesterday but has become more persistently elevated overnight. -Continue metoprolol -Clonidine and enalapril prn for SBP/DBP >/= 160/90. -If remains elevated today may benefit from addition of BRYON inhibitor due to comorbidities. Diabetes Mellitus, Type 2: with hyperglycemia of 477 on presentation. Pseudohyponatremia present. Patient received 10 units of regular insulin in ED and 60 units Levemir and 3 units of Novolog last night. - Continue bedside Accu-Cheks with sliding scale insulin. - hold his Apidra. -Monitor Accu-Chek, D5 iv fluid patient need to be nothing by mouth with low BG Hypokalemia: - monitor BMP and replace as needed GI prophylaxis: Pepcid 20 mg po bid. DVT prophylaxis: SCDs; start heparin sq bid. Problem Qualifiers (1) Chest pain: Qualified Codes: R07.9 - Chest pain, unspecified July Cain MD Apr 01, 2017 11:11
[2017-04-01 11:58] LABS: HEMOGLOBIN A1a 1.3 %; HEMOGLOBIN A1b 0.9 %; HEMOGLOBIN F 1.5 %; HEMOGLOBIN LA1C 2.3 %; HEMOGLOBIN P3 4.2 %
--- NOTE | 2017-04-01 12:19 | TR ---
Date Performed: 03/31/2017 Time Performed: 13:27:03 DOCTOR: Venkat Bowen DRUG LIST: CLINICAL HISTORY: CHEST PAIN REASON FOR TEST: Chest pain REASON FOR ENDING: OBSERVATION: CONCLUSION: Lexiscan stress test was performed under standard four minute protocol. [place] e was injected one minute prior to ending the test. No electrocardiographic abormalities were present to suggest ischemia. Nuclear imaging and interpretation are pending. COMMENTS:
--- NOTE | 2017-04-01 13:03 | ECHRPT ---
Indication: SOB CONCLUSIONS Poor echocardiographic windows Normal left ventricular size. Wall thickness is normal. The left ventricular systolic function is moderately reduced with an estimated ejection fraction of 45-50%. Mitral annular calcification is present. The pulmonary valve is not well visualized. BP: / HR: Rhythm: MEASUREMENTS (Male / Female) Normal Values Technical Quality:Technically difficult study 2D ECHO LV Diastolic Diameter PLAX 4.7 cm 4.2 - 5.9 / 3.9 - 5.3 cm LV Systolic Diameter PLAX 3.8 cm IVS Diastolic Thickness 1.1 cm 0.6 - 1.0 / 0.6 - 0.9 cm LVPW Diastolic Thickness 0.8 cm 0.6 - 1.0 / 0.6 - 0.9 cm LV Relative Wall Thickness 0.4 LA Systolic Diameter LX 3.1 cm 3.0 - 4.0 / 2.7 - 3.8 cm DOPPLER Mitral E Point Velocity 75.0 cm/s Mitral A Point Velocity 62.7 cm/s Mitral E to A Ratio 1.2 TR Peak Velocity 178.0 cm/s TR Peak Gradient 12.7 mmHg FINDINGS LEFT VENTRICLE Normal left ventricular size. Wall thickness is normal. The left ventricular systolic function is moderately reduced with an estimated ejection fraction of 40%. RIGHT VENTRICLE Normal right ventricular size and systolic function. LEFT ATRIUM The left atrial size is normal. RIGHT ATRIUM The right atrial size is normal. ATRIAL SEPTUM Normal atrial septal thickness without atrial level shunting by limited color doppler interrogation. AORTA The aortic root and proximal ascending aorta are normal in size on limited imaging. MITRAL VALVE Mitral annular calcification is present. AORTIC VALVE Trileaflet aortic valve. No aortic valve stenosis or regurgitation. TRICUSPID VALVE Structurally normal tricuspid valve. No tricuspid valve stenosis or regurgitation. PULMONARY VALVE The pulmonary valve is not well visualized. VESSELS The inferior vena cava is normal in size. PERICARDIUM No pericardial effusion. John Handy MD (Electronically Signed) Final Date:01 April 2017 13:03
--- NOTE | 2017-04-01 14:42 | MB ---
cc: NOAH SEVILLA DATE OF CONSULTATION: 04/01/2017. HISTORY OF PRESENT ILLNESS: Mr. Kapadia is a 71-year-old white male with a history of coronary artery disease, coronary stenting who developed substernal chest and shoulder discomfort with exertion when he was walking in the grocery store. He had chest pain and pain in both shoulders, dizziness and shortness of breath. He had similar pain before his stents a year ago. His chest pain is now improved but he complains of generalized weakness. PAST MEDICAL HISTORY: 1. Positive for coronary artery disease with two-vessel stenting. 2. Diabetes mellitus. 3. Hypertension. 4. Left rotator cuff surgery. MEDICATIONS: His medications include: 1. Insulin. 2. Subcutaneous heparin. 3. Aspirin. 4. Pepcid. 5. Metoprolol 25 milligrams twice a day. ALLERGIES: NONE. SOCIAL HISTORY: The patient does not smoke. He drinks alcohol occasionally. His significant other is present. FAMILY HISTORY: Positive for coronary disease in his father. REVIEW OF SYSTEMS: The review of systems is otherwise negative. PHYSICAL EXAMINATION: VITAL SIGNS: Blood pressure 135/74, pulse 64 and regular. HEAD, EYES, EARS, NOSE, THROAT: Negative. NECK: 2+ carotid upstrokes, no bruits. LUNGS: Clear. HEART: Regular with no murmurs, rubs or gallops. ABDOMEN: Abdomen soft. No bruits. EXTREMITIES: Without edema. 2+ distal pulses. NEUROLOGIC: Grossly nonfocal. CARDIOLOGY STUDIES: EKG was reviewed and showed normal sinus rhythm with normal axis intervals and no acute changes. Echocardiogram revealed mild left ventricular dysfunction with an ejection fraction of 45% to 50%. LABORATORY DATA: Hemoglobin 15.7. Potassium 3.6, creatinine 0.8. CK 58. Troponin 0.04. LDL 72. HDL 35. IMAGING STUDIES: Nuclear marker perfusion study was performed and showed inferior reversible defect consistent with ischemia. DIAGNOSIS: 1. Unstable angina. 2. Coronary artery disease with history of coronary stenting. 3. Diabetes mellitus. 4. Hypertension. DISPOSITION: Mr. Kapadia will be scheduled for cardiac catheterization and coronary intervention if necessary. He and his understand the risks and benefits and wish to proceed. Will continue aggressive modification of his cardiac risk factors. MD KELLY Moore/TRESSA /2:01 PM /2:31 PM
[2017-04-01] MEDS: ISOSORBIDE MONONITRATE 30 MG TAB PO SCH (15:39)
[2017-04-01] MEDS: PRAVASTATIN SOD 40 MG TAB PO SCH (15:39)
[2017-04-01] MEDS: INSULIN DETEMIR 100 UNITS/ML VIAL SQ SCH (21:00)
[2017-04-01] MEDS: ACETAMINOPHEN 500 MG CPLT PO PRN (21:09)
[2017-04-01] MEDS: diphenhydrAMINE HCL 25 MG CAP PO PRN (21:09)
[2017-04-02] VITALS (22 sets, daily range): BP systolic 112–150; BP diastolic 63–82; PULSE 60–118; RESP 16–20; TEMP 97.5–98.5; O2SAT 95–98
[2017-04-02] MEDS: ACETAMINOPHEN 500 MG CPLT PO PRN ×2 (04:36→11:51)
[2017-04-02] MEDS: ISOSORBIDE MONONITRATE 30 MG TAB PO SCH (06:08)
[2017-04-02] MEDS: HEPARIN SODIUM - SQ 10,000 UNITS/ML VIAL SQ SCH ×2 (06:08→17:49)
[2017-04-02] MEDS: INSULIN ASPART SUPPLEMENTAL SCALE SQ SCH ×4 (08:27→21:58)
[2017-04-02] MEDS: SODIUM CHLORIDE 0.9% FLUSH 10 ML FLUSH IV FLUSH SCH ×2 (08:27→21:57)
[2017-04-02] MEDS: PRAVASTATIN SOD 40 MG TAB PO SCH (08:28)
[2017-04-02] MEDS: FAMOTIDINE 20 MG TAB PO SCH ×2 (08:28→21:58)
[2017-04-02] MEDS: ASPIRIN EC 325 MG TABEC PO SCH (08:28)
[2017-04-02] MEDS: METOPROLOL TARTRATE 25 MG TAB PO SCH ×2 (08:28→21:58)
[2017-04-02] MEDS: INSULIN GLULISINE SQ SCH ×3 (08:28→17:50)
[2017-04-02] MEDS ORDERED: IOHEXOL 350 MG/ML 100 ML BTL (for Cath Lab) OTHER ONE (11:33)
--- NOTE | 2017-04-02 12:19 | HHI.PR ---
Subjective Remarks Doing well laying in bed, complain of headache mostly due to nitroglycerin, Lantus for heart catheter at 4 PM No chest pain or short of breath, family at bedside Objective Vitals Vital Signs Date Time Temp Pulse Resp B/P (MAP) Pulse Ox O2 Delivery O2 Flow Rate FiO2 04/02/17 11:00 118 04/02/17 10:08 63 04/02/17 09:00 61 04/02/17 08:00 65 04/02/17 08:00 97.9 65 18 114/63 (80) 98 04/02/17 07:00 60 04/02/17 06:00 68 04/02/17 05:00 67 04/02/17 04:00 64 04/02/17 03:00 97.5 69 18 147/76 (99) 97 04/02/17 03:00 62 04/02/17 02:00 68 04/02/17 01:00 68 04/02/17 00:00 68 04/01/17 23:00 98.2 69 18 136/74 (94) 96 04/01/17 23:00 67 04/01/17 22:03 73 04/01/17 21:00 78 04/01/17 20:00 73 04/01/17 19:16 98.0 73 18 112/54 (73) 96 04/01/17 19:00 78 04/01/17 18:03 78 04/01/17 16:13 71 04/01/17 15:52 70 04/01/17 15:52 98.2 76 16 124/55 (78) 98 04/01/17 14:13 62 04/01/17 13:17 64 I/O 04/01/17 04/01/17 04/01/17 04/02/17 04/02/17 04/02/17 07:00 15:00 23:00 07:00 15:00 23:00 Intake Total 240 ml 960 ml 720 ml Balance 240 ml 960 ml 720 ml Intake Oral 240 ml 960 ml 720 ml # Voids 2 3 2 # Bowel Movements 0 Result Diagram: 03/30/17 2004 03/31/17 3757 Objective Remarks GENERAL: This is a well-nourished, well-developed patient, in no apparent distress. SKIN: No rashes, warm and dry HEAD: Atraumatic. Normocephalic. EYES: Pupils equal round and reactive. Extraocular motions intact. No scleral icterus. ENT: Nose without bleeding, or drainage, Airway patent. NECK: Trachea midline. Supple CARDIOVASCULAR: Regular rate and rhythm without murmurs, gallops, or rubs. RESPIRATORY: Fair air entry bilaterally. No wheezes, rales, or rhonchi. GASTROINTESTINAL: Abdomen soft, non-tender, nondistended. Positive bowel sounds MUSCULOSKELETAL: Extremities without clubbing, cyanosis, or edema. Pedal pulses appreciated NEUROLOGICAL: Awake and alert. Moves all extremity. Normal speech.no focal neurological deficit A/P Problem List: (1) Chest pain ICD Code: R07.9 - Chest pain, unspecified Status: Acute (2) Dyspnea ICD Code: R06.00 - Dyspnea, unspecified Status: Acute (3) HTN (hypertension) ICD Code: I10 - Essential (primary) hypertension Status: Acute (4) Hyperglycemia ICD Code: R73.9 - Hyperglycemia, unspecified Status: Acute (5) DM2 (diabetes mellitus, type 2) ICD Code: E11.9 - Type 2 diabetes mellitus without complications (6) CAD (coronary artery disease) ICD Code: I25.10 - Atherosclerotic heart disease of [place] coronary artery without angina pectoris Assessment and Plan 04/01: Discussed with the nurse will verify with the dietary assistant regarding the heart catheter timing, if no heart catheter today will resume diabetic diet, otherwise will do stat Accu-Chek if BG less than 100 will start D5 iv fluid 04/02: Continue current care, heart catheter planned at [address] jane A/P: 71-year-old male with: Chest pain/Dyspnea: Rule out ACS Worrisome for stable angina versus acute coronary syndrome. Patient does have known coronary disease; dietary assistant is in [place]. -Positive troponin and stress nuclear testing>> patient was transferred [facility] for heart catheter -Continue beta eduin -325 mg po daily aspirin -Nitro SL prn chest pain -Follow-up Echo -Telemetry CAD: Patient with 2 stents from a similar episode to what he has described earlier. -continue with his aspirin, beta eduin and we'll follow on telemetry -Lipid profile reviewed HDL 35, TG 155 HTN: BP fluctuated yesterday but has become more persistently elevated overnight. -Continue metoprolol -Clonidine and enalapril prn for SBP/DBP >/= 160/90. -If remains elevated today may benefit from addition of BRYON inhibitor due to comorbidities. Diabetes Mellitus, Type 2: with hyperglycemia of 477 on presentation. Pseudohyponatremia present. Patient received 10 units of regular insulin in ED and 60 units Levemir and 3 units of Novolog last night. - Continue bedside Accu-Cheks with sliding scale insulin. - hold his Apidra. -Monitor Accu-Chek, D5 iv fluid patient need to be nothing by mouth with low BG Hypokalemia: - monitor BMP and replace as needed GI prophylaxis: Pepcid 20 mg po bid. DVT prophylaxis: SCDs; start heparin sq bid. Problem Qualifiers (1) Chest pain: Qualified Codes: R07.9 - Chest pain, unspecified July Cain MD Apr 02, 2017 12:19
[2017-04-02] MEDS ORDERED: HEPARIN-NS/PF INJ 1,000 ML ONE ×2 (18:00→19:10)
[2017-04-02] MEDS ORDERED: MIDAZOLAM HCL 5 MG/5 ML VIAL ONE (18:01)
[2017-04-02] MEDS ORDERED: HEPARIN SODIUM - IV 10,000 UNITS/10 ML VIAL ONE (18:46)
[2017-04-02] MEDS ORDERED: NITROGLYCERIN INJ 5 ML ONE (18:46)
[2017-04-02] MEDS ORDERED: MIDAZOLAM HCL 2 MG/2 ML VIAL ONE ×2 (19:06→19:16)
[2017-04-02] MEDS ORDERED: CANGRELOR TETRASODIUM 50,000 MCG VIAL ONE (19:28)
[2017-04-02] MEDS ORDERED: TICAGRELOR 90 MG TAB PO ONE (19:37)
--- NOTE | 2017-04-02 19:46 | CATHPROC ---
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 Marium Landeros,RN Recorder Sonia Hernandez,CARTER Scrub Artur MccabeRT(R) Procedures Performed Procedure Location (Site) Vessel Name Angiogram LV LV Ventricle Coronary Angiograms LCA Left Coronary Coronary Angiograms RCA Right Coronary Drug Eluting Inflatio LAD Prox Left Coronary Drug Eluting Inflatio OM2 Mid CIRC L Heart Cath PTCA LAD Prox Left Coronary PTCA OM2 Mid CIRC Wire insertion Fem Art (right) Femoral Art Equipment Time Inspector Receiving Description Size Mfg Part Number Used/Scraped WIRE, BALANCE MIDDLEWEIGHT [id number] 18:46 [employer] 190CM Used 190CM ([facility]) *[id number] TRANSDUCER, TRUWAVE [id number] 18:03 SANDERS ROMAN * Used W/STOCKCOCK *[id number] 18:54 [employer] BALLOON, 2.0 8MM EMERGE MR 2.0 8MM Used *[id number] 534-548T *[id number] 534-520T *[id number] [id number] *[id number] *[id number] 19:24 [employer]IG[employer] MED[employer] ANGIOSEAL, FR6 VIP FR 6 Used *[id number] 18:03 [employer] PACK, CCL CUSTOM * Used *[id number] 18:03 [employer] PACER PEN, SKIN DUAL W/ RULER * Used *[id number] BALLOON, 3.0 X 8MM NC [id number] 19:06 [employer] 8MM Used EUPHORA *[id number] 19:15 [employer] STENT, 2.5 18MM BERTIN 2.5 18MM Used *[id number] [id number] 19:20 [employer] STENT, 2.5 8MM BERTIN 2.5 8MM Used *[id number] 18:59 [employer]TR[employer] STENT, 3.0 12MM BERTIN 3.0 12MM Used *[id number] 18:56 [employer] MEDICAL 30 DAVEY INDEFLATOR Used *[id number] 18:45 [employer] MEDICAL SHEATH, FR6.5 PRELUDE 11CM FR 6.5 038ACT Used *[id number] [id number] 18:03 [employer] MEDICAL WIRE, 3MMJ .035 180CM 180CM Used *[id number] PROBE COVER, STERILE [id number] 18:03 [email or web address] MEDICAL * Used ULTRASOUND W/ GEL *[id number] 18:03 NAMIC MANIFOLD, 4 PORT * Used *[id number] 18:03 NAMIC TUBING, HIGH PRESSURE 48" 48" Used *[id number] 18:03 [employer] OMNIPAQUE, 350 MG, 150ML 150ML [id number] Used [id number] 18:03 [facility] BLANKET,WARM AIR CCL * Used *[id number] [id number] 18:03 TERUMO MEDICAL SHEATH, FR5 TERUMO (10CM) FR 5 Used *[id number] Equipment Model, Serial, Lot Number and Expiration Data Description Model Number Serial Number Lot Number Expiration Date ANGIOSEAL, FR6 VIP [id number] 01-22-2018 BALLOON, 2.0 8MM EMERGE MR [id number] 11-07-2019 STENT, 2.5 18MM BERTIN [id number] 12-08-2018 STENT, 2.5 8MM BERTIN [id number] 11-28-2018 STENT, 3.0 12MM BERTIN [id number] 11-10-2018 History: Current Medications Medication Dosage/Unit Route Frequency Last Date/Time Taken ASA 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 History: Allergies Allergy Reaction No Known Allergies History: Risk Factors Family History of Hypertension Dyslipidemia Previous OH Previous Heart Failure Premature CAD No No No No No Prior Valve Prior PCI Prior PCIDate Prior CABG Surgery No Yes 06/25/2010 No Cerebrovascular Peripheral Artery Chronic Lung On Dialysis Diabetes Disease Disease Disease No No No No No History: Symptoms/Diagnosis Selection Items Chest pain History: Stress Tests Stress or Imaging Studies Performed No History: OH/CV Data Previous Cath Date Previous OH Time 06/25/2010 6 Years History: Other Current Smoker No Labs Hgb (g/dl) Hct (%) WBC (l/cumm) Platelets (thousands) 11.60-17.00 35.00-51.00 4.00-11.00 150.00-450.00 15.7 47.3 7.8 254 Glucose (mg/dl) BUN (mg/dl) Creatinine (mg/dl) BUN:Creatinine (1:x) 74.00-106.00 7.00-18.00 0.50-1.30 10.00-20.00 110 13 0.8 16.3 Na (meq/l) K (meq/l) 136.00-145.00 3.50-5.10 141 3.6 Troponin I (ng/ml) CPK (u/l) CPK-MB (ng/ML) 0.02-0.05 26.00-308.00 0.50-3.60 0.04 58 Not Drawn Medication Medication Total Dose (Bolus/Oral) Medication Total Dosage/Unit 1% XYLOCAINE 20 mL BRILINTA 180 mg FENTANYL 150 mcg HEPARIN 8000 units NTG (IC) 100 mcg VERSED 6 mg Medications (Bolus/Oral) Medication Time Given Dosage/Unit Administered By Reason VERSED 04/02/2017 6:26:42 PM 2 mg Arnavy, Marium 2 mg VERSED given in lab by Marium Landeros RN via Peripheral IV. FENTANYL 04/02/2017 6:27:00 PM 50 mcg Arnavy, Marium 50 mcg FENTANYL given in lab by Marium Landeros RN via Peripheral IV. Ordered by Jina Juares. 1% XYLOCAINE 04/02/2017 6:29:48 PM 20 mL Leti, Marium 20 mL 1% XYLOCAINE given in lab by Marium Landeros RN via Subcutaneous. VERSED 04/02/2017 6:31:33 PM 2 mg Arnavy, Marium 2 mg VERSED given in lab by Mairum Landeros RN via Peripheral IV. Ordered by Jina Juares. FENTANYL 04/02/2017 6:32:55 PM 50 mcg Nemo Landerosfer 50 mcg FENTANYL given in lab by Marium Landeros RN via Peripheral IV. Ordered by Jina Juares. HEPARIN 04/02/2017 6:50:30 PM 8000 units Marium Landeros 8000 units HEPARIN given in lab by Marium Landeros RN via Peripheral IV. Ordered by Jina Juares. NTG (IC) 04/02/2017 6:54:27 PM 100 mcg LefArtur shi 100 mcg NTG (IC) given in lab by Artur Mccabe, RT(R) via Intra-coronary. Ordered by Jina Juares. VERSED 04/02/2017 7:08:30 PM 2 mg Marium Landeros 2 mg VERSED given in lab by Marium Landeros RN via Peripheral IV. Ordered by Jina Juares. FENTANYL 04/02/2017 7:08:33 PM 50 mcg Marium Landeros 50 mcg FENTANYL given in lab by Marium Landeros RN via Peripheral IV. Ordered by Jina Juares. BRILINTA 04/02/2017 7:40:02 PM 180 mg Marium Landeros 180 mg BRILINTA given in lab by Marium Landeros RN via Oral. Ordered by Jina Juares. Medication (Drip) Medication Time Given Dosage/Unit Concentration/Unit Diluent (ml) Solution IV Solutions 04/02/2017 6:09:26 PM 50 mL (IV) 500 NaCl .9 Patient arrived on IV Solutions via Peripheral IV. Pump/Drip Flow using NaCl .9. KENGREAL BOLUS 04/02/2017 7:30:39 PM 16 mL 16 mL KENGREAL BOLUS given in lab by Marium Landeros RN in Left Antecubital via Peripheral IV. Order ed by Jina Juares. KENGREAL DRIP 04/02/2017 7:34:09 PM 4 mcg/kg/min 50 mg 250 NaCl .9 4 mcg/kg/min KENGREAL DRIP given in lab by Marium Landeros RN in Left Antecubital via Peripheral IV. Pump/Drip Flow = 126 ml/hr using NaCl .9 with a concentration of 50 mg in 250 ml. Ordered by Jina Juares. Initial Case Assessment Cardiovascular HR NIBP Chest Pain 75 146/83 0 Edema Present Skin color Skin None Normal Warm Dry Circulatory - Right Pulses Dorsalis Pedis Femoral 2 3 Scale (0,1,2,3,4,d) Circulatory - Left Pulses Dorsalis Pedis Femoral 2 3 Scale (0,1,2,3,4,d) Neurological State Oriented to time-place- Alert Moves all extremities person Respiration - General Respiration Rate SpO2 (%) (B/min) 20 97 Final Case Assessment Cardiovascular HR Rhythm NIBP Chest Pain 88 nsr 148/80 0 Edema Present Skin color Skin None Normal Warm Dry Circulatory - Right Pulses Dorsalis Pedis Femoral 2 3 Scale (0,1,2,3,4,d) Circulatory - Left Pulses Dorsalis Pedis Femoral 2 3 Scale (0,1,2,3,4,d) Neurological State Oriented to time-place- Alert Moves all extremities person Respiration - General Respiration Rate SpO2 (%) (B/min) 20 97 Chronological Log Time Study Chronological Log 17:51:15 Patient arrived via Bed. 17:51:16 Patient Name, D.O.B, / Armband Verified By R.N. 17:51:21 Consent signed by the physician and the patient and verified by the Unit Reactor Operator staff. Vitals capture started with the following parameters, Patient=Adult, Interval=5 min, Initial Pr gyjemh=954 mmHg, 18:01:31 Deflation Rate=5 mmHg, Cuff placed on Right Arm 18:02:12 HR=75 bpm, ZSSL=738/75 mmhg, SpO2=96 %, Resp=20 B/min, Pain=0, Kenisha=10, Huber=2 18:04:59 Reference ECG taken 18:07:07 HR=75 bpm, OFOB=652/83 mmhg, SpO2=96.0 %, Resp=17 B/min, Pain=0, Kenisha=10, Huber=2 18:07:51 Patient has been NPO for More than 6Hrs. 18:08:03 A # 12 IV was noted in the Hand (left). Grade = 0 18:09:26 Patient arrived on IV Solutions via Peripheral IV. Pump/Drip Flow using NaCl .9. 18:09:46 History and physical on the chart or being dictated. Assessment: Initial Case, HR=75 BPM, GFCQ=380/83 mmhg, Chest Pain=0, Edema=None, Color=Normal, Skin = Warm, Dry Right Pulses: Sandro Ped=2, Femoral=3 18:09:48 Left Pulses: Sandro Ped=2, Femoral=3 Neurological: State=Alert, Ox3, ISAACS Respiration: Resp=20 B/min, SpO2=97 % 18:11:00 Right groin prepped with 2% chlorhexidine, and draped after a 3 min. waiting time. 18:12:10 HR=74 bpm, XAJY=473/80 mmhg, SpO2=96.0 %, Resp=17 B/min, Pain=0, Kenisha=10, Huber=2 18:13:54 Pressure channel 1 zeroed. 18:17:13 HR=74 bpm, NHJC=661/68 mmhg, SpO2=96.0 %, Resp=29 B/min, Pain=0, Kenisha=10, Huber=2 18:22:10 HR=70 bpm, DDAE=145/73 mmhg, SpO2=95.0 %, Resp=12 B/min, Pain=0, Kenisha=10, Huber=2 18:25:19 MD arrived. 18:26:42 2 mg VERSED given in lab by Marium Landeros RN via Peripheral IV. 18:27:00 50 mcg FENTANYL given in lab by Marium Landeros, CHIP via Peripheral IV. Ordered by Jina Juares. 18:27:46 HR=73 bpm, NEGE=467/75 mmhg, SpO2=94.0 %, Resp=16 B/min, Pain=0, Kenisha=10, Huber=2 Time Out. Correct patient, correct procedure, correct physician, power injector not loaded with contrast with surgical 18:28:14 team present. Time Out Concurred by MD and individual staff in procedure. 18:29:39 Case Start 18:29:48 20 mL 1% XYLOCAINE given in lab by Marium Landeros, CHIP via Subcutaneous. 18:30:24 Access site was Right Femoral Artery. 18:30:38 A SHEATH, FR5 TERUMO (10CM) FR 5 was advanced into the Fem Art (right) using the Percutaneo us technique. A PIGTAIL ANG. INFINITI CATHETER FR 5 was advanced over a wire. OMNIPAQUE, 350 MG, 150ML 150ML was used 18:31:17 for injections. 18:31:33 2 mg VERSED given in lab by Marium Landeros RN via Peripheral IV. Ordered by Juliano Juares 18:31:39 A WIRE, 3MMJ .035 180CM 180CM was inserted via Fem Art (right). 18:32:14 HR=75 bpm, APVH=703/61 mmhg, SpO2=92.0 %, Resp=20 B/min, Pain=0, Kenisha=10, Huber=2 Recorded Pressure: LV, HR=74, Condition=Condition 1 18:32:50 (Left Ventricle) LV 111/4/10 18:32:55 50 mcg FENTANYL given in lab by Mraium Landeros RN via Peripheral IV. Ordered by Jina Juares. 18:33:58 The LV was injected at 10 cc/sec for a total of 30. OMNIPAQUE, 350 MG, 150ML 150ML used. Recorded Pressure: LV, Ao, HR=75, Condition=Condition 1 18:34:29 (Left Ventricle) LV 107/4/10, (Aorta) Ao 107/49/72 After removing the current catheter a JL 4.0 INFINITI CATHETER FR 5 was advanced over a WIRE, 3 MMJ .035 180CM 18:35:05 180CM. Recorded Pressure: Ao, HR=74, Condition=Condition 1 18:35:29 (Aorta) Ao 114/52/77 18:36:08 The LCA was injected and visualized at various angles. OMNIPAQUE, 350 MG, 150ML 150ML used . 18:37:11 HR=71 bpm, HJLM=807/55 mmhg, SpO2=94.0 %, Resp=20 B/min, Pain=0, Kenisha=10, Huber=2 After removing the current catheter a AR MOD INFINITI CATHETER FR 5 was advanced over a WIRE, 3 MMJ .035 180CM 18:38:10 180CM. 18:40:04 The RCA was injected and visualized at various angles. OMNIPAQUE, 350 MG, 150ML 150ML used . 18:40:19 Catheter was removed 18:42:08 HR=83 bpm, QVCP=714/68 mmhg, SpO2=90.0 %, Resp=16 B/min, Pain=0, Kenisha=10, Huber=2 18:47:11 HR=80 bpm, QRAO=497/68 mmhg, SpO2=97.0 %, Resp=13 B/min, Pain=0, Kenisha=10, Huber=2 A SHEATH, FR6.5 PRELUDE 11CM FR 6.5 was exchanged in the Fem Art (right). This was necessary in order to 18:48:07 accomodate a larger catheter. A XBLAD 4.0 GUIDE CATHETER FR 7 was advanced over a wire. OMNIPAQUE, 350 MG, 150ML 150ML was us ed for 18:48:23 injections. 18:49:46 A WIRE, BALANCE MIDDLEWEIGHT 190CM ([place]) 190CM was inserted via Fem Art (right). 18:50:30 8000 units HEPARIN given in lab by Marium Landeros, RN via Peripheral IV. Ordered by Jina Williamson. 18:50:59 Interventional wire has crossed the lesion 18:52:08 HR=91 bpm, YRSL=208/73 mmhg, GiW4=122.0 %, Resp=19 B/min, Pain=0, Kenisha=10, Huber=2 18:54:07 Activated Clotting Time Drawn 18:54:27 100 mcg NTG (IC) given in lab by Artur Mccabe RT(R) via Intra-coronary. Ordered by Jina Williamson. A BALLOON, 2.0 8MM EMERGE MR 2.0 8MM was inserted over WIRE, BALANCE MIDDLEWEIGHT 190CM ([place]) 190CM 18:55:04 via the LAD Prox. A BALLOON, 2.0 8MM EMERGE MR 2.0 8MM over a WIRE, BALANCE MIDDLEWEIGHT 190CM ([place]) 190CM in th e LAD 18:55:42 Prox was inflated using a 30 DAVEY INDEFLATOR at 14 davey for 25 sec. 18:57:09 HR=82 bpm, DUJG=454/76 mmhg, SpO2=93.0 %, Resp=16 B/min, Pain=0, Kenisha=10, Huber=2 A BALLOON, 2.0 8MM EMERGE MR 2.0 8MM over a WIRE, BALANCE MIDDLEWEIGHT 190CM ([place]) 190CM in th e LAD 18:57:38 Prox was inflated using a 30 DAVEY INDEFLATOR at 14 davey for 15 sec. 18:58:00 Balloon Removed. 18:58:38 ACT (Normal Range 90-180) = 290 A STENT, 3.0 12MM BERTIN 3.0 12MM was advanced through a XBLAD 4.0 GUIDE CATHETER FR 7 over a WIR E, 19:00:54 BALANCE MIDDLEWEIGHT 190CM ([place]) 190CM. 19:02:51 HR=81 bpm, BXUN=527/83 mmhg, SpO2=94.0 %, Resp=16 B/min, Pain=0, Kenisha=10, Huber=2 A STENT, 3.0 12MM BERTIN 3.0 12MM was deployed using a 30 DAVEY INDEFLATOR at 12 atmospheres for 20 seconds in 19:03:30 the LAD Prox. 19:04:20 Delivery device removed 19:07:15 HR=90 bpm, MTBC=586/83 mmhg, SpO2=96.0 %, Resp=13 B/min, Pain=0, Kenisha=10, Huber=2 A BALLOON, 3.0 X 8MM NC EUPHORA 8MM was inserted over WIRE, BALANCE MIDDLEWEIGHT 190CM ([place]) 1 90CM 19:07:39 via the LAD Prox. A BALLOON, 3.0 X 8MM NC EUPHORA 8MM over a WIRE, BALANCE MIDDLEWEIGHT 190CM ([place]) 190CM in the LAD 19:07:44 Prox was inflated using a 30 DAVEY INDEFLATOR at 13 davey for 25 sec. 19:08:30 2 mg VERSED given in lab by Marium Landeros RN via Peripheral IV. Ordered by Juliano Juares ar. 19:08:33 50 mcg FENTANYL given in lab by Marium Landeros, CHIP via Peripheral IV. Ordered by Jina Juares. 19:08:40 Balloon Removed. 19:09:22 Wire repositioned down Circumflex. A BALLOON, 2.0 8MM EMERGE MR 2.0 8MM was inserted over WIRE, BALANCE MIDDLEWEIGHT 190CM ([place]) 190CM 19:10:41 via the OM2 Mid. A BALLOON, 2.0 8MM EMERGE MR 2.0 8MM over a WIRE, BALANCE MIDDLEWEIGHT 190CM ([place]) 190CM in th e OM2 19:11:29 Mid was inflated using a 30 DAVEY INDEFLATOR at 6 davey for 10 sec. A BALLOON, 2.0 8MM EMERGE MR 2.0 8MM over a WIRE, BALANCE MIDDLEWEIGHT 190CM ([place]) 190CM in th e OM2 19:11:40 Mid was inflated using a 30 DAVEY INDEFLATOR at 8 davey for 15 sec. A BALLOON, 2.0 8MM EMERGE MR 2.0 8MM over a WIRE, BALANCE MIDDLEWEIGHT 190CM ([place]) 190CM in th e OM2 19:11:50 Mid was inflated using a 30 DAVEY INDEFLATOR at 8 davey for 15 sec. 19:12:21 HR=85 bpm, LQXI=961/86 mmhg, SpO2=95.0 %, Resp=21 B/min, Pain=0, Kenisha=10, Huber=2 A BALLOON, 2.0 8MM EMERGE MR 2.0 8MM over a WIRE, BALANCE MIDDLEWEIGHT 190CM ([place]) 190CM in th e OM2 19:12:39 Mid was inflated using a 30 DAVEY INDEFLATOR at 14 davey for 12 sec. 19:13:43 Balloon Removed. A STENT, 2.5 18MM BERTIN 2.5 18MM was advanced through a XBLAD 4.0 GUIDE CATHETER FR 7 over a WIR E, 19:15:16 BALANCE MIDDLEWEIGHT 190CM ([place]) 190CM. A STENT, 2.5 18MM BERTIN 2.5 18MM was deployed using a 30 DAVEY INDEFLATOR at 12 atmospheres for 30 seconds in 19:17:08 the OM2 Mid. 19:17:20 HR=85 bpm, IUFK=043/89 mmhg, SpO2=95.0 %, Resp=18 B/min, Pain=0, Kenisha=10, Huber=2 19:19:41 Delivery device removed 19:22:21 HR=86 bpm, LWSO=806/79 mmhg, SpO2=89.0 %, Resp=16 B/min, Pain=0, Kenisha=10, Huber=2 A STENT, 2.5 8MM BERTIN 2.5 8MM was advanced through a XBLAD 4.0 GUIDE CATHETER FR 7 over a WIRE, BALANCE 19:22:28 MIDDLEWEIGHT 190CM ([place]) 190CM. A STENT, 2.5 8MM BERTIN 2.5 8MM was deployed using a 30 DAVEY INDEFLATOR at 13 atmospheres for 25 s econds in 19:22:37 the OM2 Mid. 19:23:36 Delivery device removed 19:24:01 Wire removed 19::46 Catheter was removed 19::01 An injection in the Fem Art (right) was made through the SHEATH, FR6.5 PRELUDE 11CM FR 6.5 . 19:25:25 ANGIOSEAL, FR6 VIP FR 6 placement in the Fem Art (right) 19:27:19 Case End 19:27:20 HR=89 bpm, PSEK=399/80 mmhg, SpO2=96.0 %, Resp=15 B/min, Pain=0, Kenisha=10, Huber=2 Assessment: Final Case, HR=88 BPM, Rhythm=nsr, ILEA=717/80 mmhg, Chest Pain=0, Edema=None, Col or=Normal, Skin = Warm, Dry Right Pulses: Sandro Ped=2, Femoral=3 19:27:21 Left Pulses: Sandro Ped=2, Femoral=3 Neurological: State=Alert, Ox3, ISAACS Respiration: Resp=20 B/min, SpO2=97 % 19:27:36 Sterile dressing applied to site 19:27:36 No case complications noted. 19:27:37 Cine recording checked. 19::38 Bedside Report will be given. 19::39 Implantable Device card placed in patient's chart. 19::40 Contrast Scanned 19::41 Verbal Stimulation=2 Physical Stimulation=2 Airway=2 Respiration=2 TOTAL=8. (0=absent, 1=l imited, 2=present) 19:27:47 A Left Heart Cath was performed. 16 mL KENGREAL BOLUS given in lab by Marium Landeros, CHIP in Left Antecubital via Peripheral IV . Ordered by Mor, 19:30:39 Jina. 19:32:19 HR=86 bpm, ATJZ=006/83 mmhg, SpO2=96.0 %, Resp=17 B/min, Pain=0, Kenisha=10, Huber=2 4 mcg/kg/min KENGREAL DRIP given in lab by Marium Landeros, CHIP in Left Antecubital via Periphe ral IV. Pump/Drip 19:34:09 Flow = 126 ml/hr using NaCl .9 with a concentration of 50 mg in 250 ml. Ordered by Fili Juares. 19:37:20 HR=85 bpm, FVOU=124/87 mmhg, SpO2=98.0 %, Resp=18 B/min, Pain=0, Kenisha=10, Huber=2 19:40:02 180 mg BRILINTA given in lab by Marium Landeros, RN via Oral. Ordered by Jina Juares. 19:42:19 HR=83 bpm, TCII=688/83 mmhg, SpO2=97.0 %, Resp=18 B/min, Pain=0, Kenisha=10, Huber=2 19:43:29 Vitals capture stopped. 19:43:36 Patient moved to stretcher End Study - Contrast Media Used In Study Contrast Total Opened (mL) Total Used (mL) Total Wasted (mL) Omnipaque 160 160 0 End Study - Maximum Contrast Load Max Contrast Load (mL) 656.3 End Study - Radiation Exposure Fluoro Time (minutes) 11.5 End Study - Patient Disposition Complications Transferred To Interventional Outcome No Telemetry Bed successful
[2017-04-02] MEDS ORDERED: SODIUM CHLOR 0.9% 1000 ML INJ 1,000 ML IV SCH (20:13)
[2017-04-02] MEDS ORDERED: MISC INFORMATION XX ONE (20:15)
[2017-04-02] MEDS ORDERED: ATORVASTATIN 80 MG TAB PO SCH (21:00)
[2017-04-02] MEDS: INSULIN DETEMIR 100 UNITS/ML VIAL SQ SCH (21:58)
[2017-04-02] MEDS ORDERED: ALPRAZolam 0.25 MG TAB PO ONE (22:00)
[2017-04-03] VITALS (14 sets, daily range): BP systolic 103–131; BP diastolic 69–75; PULSE 61–73; RESP 16–18; TEMP 98.4–98.5; O2SAT 94–97
[2017-04-03] MEDS: diphenhydrAMINE HCL 25 MG CAP PO PRN (01:11)
[2017-04-03] MEDS: ACETAMINOPHEN 500 MG CPLT PO PRN (01:11)
[2017-04-03 08:29] LABS: AUTOMATED NEUTROPHIL # 6.6 TH/MM3 (1.8-7.7); BASOPHIL # 0.1 TH/MM3 (0-0.2); BASOPHIL % 0.8 % (0.0-2.0); EOSINOPHIL # 0.4 TH/MM3 (0-0.4); EOSINOPHIL % 4.4 % (0.0-4.0); HEMATOCRIT 46.7 % (39.0-51.0); HEMO FLAGS DIFF FINAL; LYMPH % 19.3 % (9.0-44.0); LYMPHOCYTE # 1.9 TH/MM3 (1.0-4.8); MEAN CELL VOLUME 89.7 FL (80.0-100.0); MEAN CORPUSCULAR HEMOGLOBIN 30.2 PG (27.0-34.0); MEAN CORPUSCULAR HGB CONC 33.7 % (32.0-36.0); MONO % 9.1 % (0.0-8.0); NEUT % 66.4 % (16.0-70.0); PLATELET COUNT 264 TH/MM3 (150-450); RED CELL DISTRIBUTION WIDTH 14.4 % (11.6-17.2); WHITE BLOOD COUNT 9.9 TH/MM3 (4.0-11.0)
[2017-04-03] MEDS: METOPROLOL TARTRATE 25 MG TAB PO SCH (08:44)
[2017-04-03] MEDS: FAMOTIDINE 20 MG TAB PO SCH (08:44)
[2017-04-03] MEDS: SODIUM CHLORIDE 0.9% FLUSH 10 ML FLUSH IV FLUSH SCH (08:45)
[2017-04-03] MEDS: INSULIN ASPART SUPPLEMENTAL SCALE SQ SCH (08:46)
[2017-04-03 08:59] LABS: BICARBONATE 21.2 MEQ/L (21.0-32.0)
[2017-04-03] MEDS: INSULIN GLULISINE SQ SCH (09:00)
[2017-04-03] MEDS ORDERED: ASPIRIN 81 MG CHEW TAB PO SCH (09:00)
[2017-04-03] MEDS ORDERED: TICAGRELOR 90 MG TAB PO SCH (09:00)
[2017-04-03 09:03] LABS: HDL CHOLESTEROL 34.8 MG/DL (40.0-60.0)
--- NOTE | 2017-04-03 09:27 | MA ---
cc: NOAH SEVILLA Corrected Copy: 04/03/17 DATE: 04/02/2017 INDICATION Ntx-KQ-yxgiigqst myocardial infarction, class IV angina, coronary artery disease, history of coronary stenting. PROCEDURE PERFORMED 1. Retrograde heart catheterization with left ventriculography and selective coronary angiography. 2. Angioplasty and stenting of the proximal left anterior descending artery. 3. Angioplasty and stenting of the second obtuse marginal artery. 4. Moderate sedation. ACCESS SITE Right femoral artery using ultrasound guidance. EQUIPMENT USED 5 Spanish pigtail catheter, 5 Spanish JL4 and AR modified coronary artery catheters. XB LAD 4.0 guide, BMW wire. 2.0 balloon for pre-dilatation, 3.0 x 12 mm Haslet stent at 12 atmospheres, post dilated with 3.0 x 8 mm noncompliant balloon at 13 atmospheres to the proximal LAD. 2.5 x 18 mm Haslet at 12 atmospheres, and 2.5 x 8 mm Manuel at 13 atmospheres to the mid and proximal portion of the second obtuse marginal artery. MEDICATIONS Versed IV, fentanyl IV, heparin IV, nitroglycerin IC, Kengreal IV drip and Brilinta 180 mg p.o. CONTRAST Omnipaque 160 cc. COMPLICATIONS None. ESTIMATED BLOOD LOSS Less than 10 cc. METHOD OF HEMOSTASIS Angio-Seal closure. RESULTS HEMODYNAMICS Heart rate 77. Left end-diastolic pressure 5 mmHg. Left ventricle 110/5. Aorta 110/15/77. LEFT VENTRICULOGRAPHY Left ventricular ejection fraction 60%. Wall motion normal. No mitral regurgitation. CORONARY ANGIOGRAPHY The left main coronary is short and patent. The left anterior descending artery has 90% stenosis in the proximal portion and 40% stenosis in the midportion. D1 is small and patent. D2 small, 80% ostial stenosis. D3 small and patent. The left circumflex artery is patent. OM1 is small and patent. OM2 has 90% stenosis in the proximal portion and 80% with patent distal stent. The OM2 is a small caliber vessel which has 40% in-stent restenosis. A second branch of the OM2 has 60% ostial stenosis. The right coronary is a dominant vessel with 30% stenosis in the proximal portion, 50% stenosis in the midportion and 60% stenosis in the distal portion. PDA is patent. PLV is patent. The stenosis in the LAD is 90%, lesion length 8 mm, pre-DOROTHEA flow III, post-DOROTHEA flow III, post stenosis zero. Stenosis in the OM2 is 90%, lesion length 16 mm, pre-DOROTHEA flow III, post DOROTHEA flow III, post stenosis zero. Post intervention angiography revealed excellent patency of all stented segments and no evidence of dissection, thrombosis or distal embolization. DIAGNOSIS 1. Yav-WE-hqtvuutkc myocardial infarction. 2. Coronary artery disease with 90% stenosis of proximal left anterior descending artery and 90% stenosis of the second obtuse marginal artery. 3. Overall preserved left ventricular systolic function. 4. Successful angioplasty and stenting of the proximal left anterior descending artery. 5. Successful angioplasty and stenting of the second obtuse marginal artery. DISPOSITION Mr. Kapadia will be monitored on telemetry after the procedure. Will continue long-term therapy with Brilinta and baby aspirin. Will also continue aggressive modification of his cardiac risk factors. MD KELLY Moore/MARIAMA /7:44 PM /11:16 AM
[2017-04-03] MEDS ORDERED: METO25TA3 PO (09:38)
[2017-04-03] MEDS ORDERED: ATOR1TAB18 PO (09:38)
[2017-04-03] MEDS ORDERED: NITR0.4S SL (09:38)
[2017-04-03] MEDS ORDERED: NOVOLOGSS SQ (09:38)
[2017-04-03] MEDS ORDERED: LEVEMIR SQ (09:38)
[2017-04-03] MEDS ORDERED: BRIL90TA PO (09:38)
[2017-04-03] MEDS ORDERED: ASPI81CH25 PO (09:38)
--- NOTE | 2017-04-03 09:48 | EKG ---
Date Performed: 04/02/2017 Time Performed: 21:13:52 PTAGE: 71 years EKG: Sinus rhythm Normal ECG PREVIOUS TRACING : 03/31/2017 09.36 Compared to prior study, nonspecific T-wave changes have im proved. DOCTOR: Andre Neri Interpretating Date/Time 04/03/2017 09:47:43
--- NOTE | 2017-04-03 10:11 | EKG ---
Date Performed: 04/03/2017 Time Performed: 06:00:04 PTAGE: 71 years EKG: Sinus rhythm Normal ECG PREVIOUS TRACING : 04/02/2017 21.13 Compared to prior tracing no significant change DOCTOR: Andre Neri Interpretating Date/Time 04/03/2017 10:07:54
--- NOTE | 2017-04-03 12:10 | PD.CARD.PN ---
Subjective Subjective Remarks No angina or CHF symptoms, feels well Objective Vital Signs / I&O Vital Signs Date Time Temp Pulse Resp B/P (MAP) Pulse Ox O2 Delivery O2 Flow Rate FiO2 04/03/17 11:32 98.5 67 18 103/70 (81) 97 04/03/17 11:01 67 04/03/17 10:00 64 04/03/17 09:00 68 04/03/17 08:00 62 04/03/17 07:39 98.4 65 18 127/69 (88) 97 04/03/17 07:01 62 04/03/17 06:00 62 04/03/17 05:00 65 04/03/17 04:00 61 04/03/17 03:00 98.4 68 16 131/75 (93) 94 04/03/17 03:00 68 04/03/17 02:00 73 04/03/17 01:00 62 04/03/17 00:00 66 04/02/17 23:00 68 04/02/17 23:00 98.5 71 16 141/71 (94) 97 04/02/17 22:00 72 04/02/17 21:00 70 04/02/17 20:00 79 04/02/17 20:00 97.9 79 18 150/82 (104) 97 04/02/17 17:20 66 04/02/17 16:03 65 04/02/17 15:00 69 04/02/17 15:00 98.4 66 20 118/67 (84) 95 04/02/17 14:04 72 04/02/17 13:01 62 I/O 04/02/17 04/02/17 04/02/17 04/03/17 04/03/17 04/03/17 07:00 15:00 23:00 07:00 15:00 23:00 Intake Total 720 ml 680 ml 1460 ml 240 ml Output Total 1225 ml Balance 720 ml 680 ml 235 ml 240 ml Intake Oral 720 ml 680 ml 960 ml 240 ml IV Total 500 ml Output Urine Total 1225 ml # Voids 2 4 1 2 # Bowel Movements 0 Physical Exam GENERAL: In NAD. SKIN: Warm and dry. HEAD: Normocephalic. EYES: No scleral icterus. No injection or drainage. NECK: Supple, trachea midline. No JVD or lymphadenopathy. CARDIOVASCULAR: Regular rate and rhythm without murmurs, gallops, or rubs. RESPIRATORY: Breath sounds equal bilaterally. No accessory muscle use. GASTROINTESTINAL: Abdomen soft, non-tender, nondistended. MUSCULOSKELETAL: No cyanosis, or edema. Groin benign. Laboratory Laboratory Tests Test 04/03/17 07:15 White Blood Count 9.9 TH/MM3 Red Blood Count 5.20 MIL/MM3 Hemoglobin 15.7 GM/DL Hematocrit 46.7 % Mean Corpuscular Volume 89.7 FL Mean Corpuscular Hemoglobin 30.2 PG Mean Corpuscular Hemoglobin Concent 33.7 % Red Cell Distribution Width 14.4 % Platelet Count 264 TH/MM3 Mean Platelet Volume 7.8 FL Neutrophils (%) (Auto) 66.4 % Lymphocytes (%) (Auto) 19.3 % Monocytes (%) (Auto) 9.1 % Eosinophils (%) (Auto) 4.4 % Basophils (%) (Auto) 0.8 % Neutrophils # (Auto) 6.6 TH/MM3 Lymphocytes # (Auto) 1.9 TH/MM3 Monocytes # (Auto) 0.9 TH/MM3 Eosinophils # (Auto) 0.4 TH/MM3 Basophils # (Auto) 0.1 TH/MM3 CBC Comment DIFF FINAL Differential Comment Blood Urea Nitrogen 12 MG/DL Creatinine 0.93 MG/DL Random Glucose 246 MG/DL Calcium Level 9.0 MG/DL Sodium Level 137 MEQ/L Potassium Level 4.0 MEQ/L Chloride Level 107 MEQ/L Carbon Dioxide Level 21.2 MEQ/L Anion Gap 9 MEQ/L Estimat Glomerular Filtration Rate 80 ML/MIN Total Creatine Kinase 50 U/L Triglycerides Level 143 MG/DL Cholesterol Level 116 MG/DL LDL Cholesterol 53 MG/DL HDL Cholesterol 34.8 MG/DL Cholesterol/HDL Ratio 3.33 RATIO Assessment and Plan Problem List: (1) Stented coronary artery ICD Codes: Z95.5 - Presence of coronary angioplasty implant and graft (2) NSTEMI (non-ST elevated myocardial infarction) ICD Codes: I21.4 - Non-ST elevation (NSTEMI) myocardial infarction (3) CAD (coronary artery disease) ICD Codes: I25.10 - Atherosclerotic heart disease of [place] coronary artery without angina pectoris (4) DM2 (diabetes mellitus, type 2) ICD Codes: E11.9 - Type 2 diabetes mellitus without complications (5) HTN (hypertension) ICD Codes: I10 - Essential (primary) hypertension Status: Acute Assessment and Plan Good PCI result. Continue Brilinta and baby ASA. Aggressive risk factor modification. DC home. Will schedule outpt f/u. Jina Juares MD Apr 03, 2017 12:10
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
== END 2017-04-03 11:34 | disposition home or self-care (01) | DRG 247 ==
LOC: PHED 15:37 → PHEDA 17:55 → PH3A 20:17 → HCIN 03-31 18:54 → OBSVTOIN 04-02 11:50
PROVIDERS: ADMIT Hospitalist; ATTEND Hospitalist
PROC: 4A023N7 Measurement of Cardiac Sampling and Pressure, Left Heart, Percutaneous Approach (ICD-10-PCS; 2017-04-02)
PROC: B2111ZZ Fluoroscopy of Multiple Coronary Arteries using Low Osmolar Contrast (ICD-10-PCS; 2017-04-02)
PROC: B2151ZZ Fluoroscopy of Left Heart using Low Osmolar Contrast (ICD-10-PCS; 2017-04-02)
PROC: 027135Z Dilation of Coronary Artery, Two Arteries with Two Drug-eluting Intraluminal Devices, Percutaneous Approach (ICD-10-PCS; principal; 2017-04-02 16:15)
DX: I21.4 Non-ST elevation (NSTEMI) myocardial infarction (principal); E11.65 Type 2 diabetes mellitus with hyperglycemia; I25.10 Atherosclerotic heart disease of native coronary artery without angina pectoris; E87.6 Hypokalemia; I10 Essential (primary) hypertension; I25.2 Old myocardial infarction; Z79.82 Long term (current) use of aspirin; Z79.4 Long term (current) use of insulin; Z95.5 Presence of coronary angioplasty implant and graft
CPT/HCPCS: 71010; 78452; 80048; 80061; 82550; 82948; 83036; 83735; 84132; 84484; 85002; 85025; 85610; 85730; 92928; 92929; 93005; 93017; 93306; 93458; 94150; 96372; 96374; A9502; C1725; C1760; C1769; C1874; C1887; C1893; C9460; G0269; G0378; J1644; J1815; J2250; J2405; J2785; J3010; J7030; Q9967

== ENCOUNTER 2017-08-17 10:06 | Day surgery (SDC) | payer MEDICARE, BC ==
[~2017-08-17] VITALS: Ht 180.3 cm; Wt 106.4 kg
[2017-08-17] VITALS (7 sets, daily range): BP systolic 127–158; BP diastolic 63–92; PULSE 62–100; RESP 18; TEMP 97.9–98; O2SAT 97–100
[~2017-08-17 10:06] MED LIST changes: +ASPI81CH25 PO; -ASPI81CH37 CHEW; +ASPI81CH6 CHEW; +ATOR80TA45 PO; +BRIL90TA PO; +LEVEMIR SQ; +NITR0.4S SL; +NOVOLOGSS SQ
[2017-08-17] MEDS ORDERED: IOHEXOL 350 MG/ML 100 ML BTL (for Cath Lab) OTHER ONE (10:07)
[2017-08-17] MEDS ORDERED: IOHEXOL 350 MG/ML 50 ML BTL (for Cath Lab) OTHER ONE (10:07)
[2017-08-17] MEDS ORDERED: CLOP75TA PO (10:56)
[2017-08-17] MEDS ORDERED: METO50TA PO (10:56)
[2017-08-17] MEDS ORDERED: LISI10TA3 PO (10:56)
[2017-08-17] MEDS ORDERED: NS 1000P @30 MLS/HR (KVO) IV SCH (11:00)
[2017-08-17 12:04] LABS: AUTOMATED NEUTROPHIL # 9.2 TH/MM3 (1.8-7.7); BASOPHIL # 0.1 TH/MM3 (0-0.2); BASOPHIL % 0.4 % (0.0-2.0); EOSINOPHIL # 0.1 TH/MM3 (0-0.4); EOSINOPHIL % 0.5 % (0.0-4.0); HEMATOCRIT 44.6 % (39.0-51.0); HEMOGLOBIN 15.5 GM/DL (13.0-17.0); LYMPH % 17.4 % (9.0-44.0); LYMPHOCYTE # 2.2 TH/MM3 (1.0-4.8); MEAN CELL VOLUME 91.3 FL (80.0-100.0); MEAN CORPUSCULAR HEMOGLOBIN 31.7 PG (27.0-34.0); MEAN CORPUSCULAR HGB CONC 34.8 % (32.0-36.0); MEAN PLATELET VOLUME 7.3 FL (7.0-11.0); MONO % 9.5 % (0.0-8.0); MONOCYTE # 1.2 TH/MM3 (0-0.9); NEUT % 72.2 % (16.0-70.0); PLATELET COUNT 180 TH/MM3 (150-450); RED BLOOD COUNT 4.88 MIL/MM3 (4.50-5.90); RED CELL DISTRIBUTION WIDTH 16.9 % (11.6-17.2); WHITE BLOOD COUNT 12.8 TH/MM3 (4.0-11.0)
[2017-08-17 12:15] LABS: PROTHROMBIN TIME - PATIENT 10.4 SEC (9.8-11.6)
[2017-08-17 12:22] LABS: BICARBONATE 28.5 MEQ/L (21.0-32.0); CALCIUM 8.6 MG/DL (8.5-10.1); CREATININE 0.86 MG/DL (0.60-1.30)
[2017-08-17] MEDS ORDERED: MIDAZOLAM HCL 2 MG/2 ML VIAL ONE ×2 (13:58→14:08)
[2017-08-17] MEDS ORDERED: HEPARIN SODIUM - IV 10,000 UNITS/10 ML VIAL ONE (14:25)
[2017-08-17] MEDS ORDERED: NITROGLYCERIN INJ 5 ML ONE (14:27)
[2017-08-17] MEDS ORDERED: CLOPIDOGREL 300 MG TAB ONE (14:50)
--- NOTE | 2017-08-17 15:10 | CATHPROC ---
[email or web address] HIS Report Study Information Study Number Admission Scheduled Start Study Start [id number] Aug 17 2017 10:06AM 08/17/2017 Aug 17 2017 1:42PM [facility] Cardiac Catheterization Admit Source Facility Department Other [facility] Physician and Clinical Staff Initial Jina Hazel Occupational Health Rn Marium Landeros,RN Recorder Delmer SAUNDERS, Wade Decker, Venu,RT(R) Procedures Performed Procedure Location (Site) Vessel Name Angiogram LV LV Ventricle Coronary Angiograms LCA Left Coronary Coronary Angiograms RCA Right Coronary Drug Eluting Inflatio RCA Mid Right Coronary L Heart Cath PTCA RCA Right Coronary Wire insertion Fem Art (right) Femoral Art Equipment Time Tar Roofer Description Size Mfg Part Number Used/Scraped WIRE, BALANCE MIDDLEWEIGHT [id number] 14:29 [employer] 190CM Used 190CM *[id number] TRANSDUCER, TRUWAVE [id number] 14:16 [employer] * Used W/STOCKCOCK *[id number] *[id number] *[id number] *[id number] 14:47 DAIG/[employer]. KEV[employer] MEDICAL ANGIOSEAL, FR6 VIP FR 6 Used *[id number] 14:16 [email or web address] INDUSTRIES PACK, CCL CUSTOM * Used *[id number] 14:16 [email or web address] PACER PEN, SKIN DUAL W/ RULER * Used *[id number] 14:06 [employer] AR MOD DXTERITY CATHETER FR 5 [id number] Used [id number] 14:36 [employer] BALLOON, 2.0 X 10MM EUPHORA 10MM Used *[id number] 14:40 [employer] STENT, 2.5 12MM BERTIN 2.5 12MM Used *[id number] 14:26 [employer] MEDICAL 30 RUTH INDEFLATOR Used *[id number] 14:27 [employer] MEDICAL SHEATH, FR6.5 PRELUDE 11CM FR 6.5 [id number] Used *[id number] 14:16 [employer] MEDICAL WIRE, 3MMJ .035 180CM 180CM Used *[id number] PROBE COVER, STERILE [id number] 14:16 [employer] MEDICAL * Used ULTRASOUND W/ GEL *[id number] 14:16 NAMIC MANIFOLD, 4 PORT * Used *[id number] 14:16 NAMIC TUBING, HIGH PRESSURE 48" 48" Used *[id number] 14:05 NAMIC TUBING, HIGH PRESSURE 48" 48" Used *[id number] 14:16 [employer] OMNIPAQUE, 350 MG, 150ML 150ML [id number] Used [id number] 14:16 [employer]AN MEDICAL BLANKET,WARM AIR CCL * Used *[id number] 14:16 [employer] MEDICAL SHEATH, FR5 TERUMO (10CM) FR 5 Used *[id number] Equipment Model, Serial, Lot Number and Expiration Data Description Model Number Serial Number Lot Number Expiration Date AR MOD DXTERITY CATHETER [id number] 10-21-2019 STENT, 2.5 12MM BERTIN [id number] 03-30-2019 History: Current Medications Medication Dosage/Unit Route Frequency Last Date/Time Taken Statins (any) LOPRESSOR ASA PLAVIX 08/17/2017 History: Allergies Allergy Reaction NKDA History: Risk Factors Family History of Hypertension Dyslipidemia Previous CA Previous Heart Failure Premature CAD Yes Yes No Yes No Prior Valve Prior PCI Prior PCIDate Prior CABG Surgery No Yes 04/03/2017 No Cerebrovascular Peripheral Artery Chronic Lung On Dialysis Diabetes Diabetes Therapy Disease Disease Disease No No No No Yes Insulin History: Stress Tests Stress or Imaging Studies Performed Yes Standard Exercise Stress Test No Stress Echo No Stress Test SPECT Stress Test SPECT Result Stress Test SPECT Ischemia Risk/Extent Yes Positive Intermediate Stress Test CMR No Cardiac CTA Coronary Calcium Score No No History: Other Current Smoker Quit Packs a Day Years Used Pack Years No 40 Years Ago 1 15 15 Diabetic Diet Yes Labs Hgb (g/dl) Hct (%) WBC (l/cumm) 11.60-17.00 35.00-51.00 4.00-11.00 15.5 44.6 12.8 Glucose (mg/dl) BUN (mg/dl) Creatinine (mg/dl) BUN:Creatinine (1:x) 74.00-106.00 7.00-18.00 0.50-1.30 10.00-20.00 140 15 0.9 16.7 Na (meq/l) K (meq/l) 136.00-145.00 3.50-5.10 140 3.7 INR (PTT:PT) 0.90-1.10 1 CPK-MB (ng/ML) 0.50-3.60 Not Drawn Medication Medication Total Dose (Bolus/Oral) Medication Total Dosage/Unit 1% XYLOCAINE 20 mL FENTANYL 100 mcg HEPARIN 7000 units NTG (IC) 500 mcg PLAVIX 300 mg VERSED 4 mg Medications (Bolus/Oral) Medication Time Given Dosage/Unit Administered By Reason VERSED 08/17/2017 2:06:53 PM 2 mg Adamy, Marium 2 mg VERSED given in lab by Marium Landeros RN via Peripheral IV. Ordered by Jina Juares. FENTANYL 08/17/2017 2:07:18 PM 50 mcg Adamy, Marium 50 mcg FENTANYL given in lab by Marium Landeros RN via Peripheral IV. Ordered by Jina Juares. VERSED 08/17/2017 2:13:23 PM 1 mg Adamy, Marium 1 mg VERSED given in lab by Marium Landeros RN via Peripheral IV. Ordered by Jina Juares. FENTANYL 08/17/2017 2:13:31 PM 25 mcg Adamy, Marium 25 mcg FENTANYL given in lab by Marium Landeros RN via Peripheral IV. Ordered by Jina Juares. 1% XYLOCAINE 08/17/2017 2:13:54 PM 20 mL Jina Juares 20 mL 1% XYLOCAINE given in lab by Jina Juares via Subcutaneous. Ordered by Jina Juares. HEPARIN 08/17/2017 2:26:48 PM 7000 units Marium Landeros 7000 units HEPARIN given in lab by Marium Landeros RN via Peripheral IV. Ordered by Jina Juares. VERSED 08/17/2017 2:27:31 PM 1 mg Adamy, Marium 1 mg VERSED given in lab by Marium Landeros RN via Peripheral IV. Ordered by Jina Juares. FENTANYL 08/17/2017 2:28:14 PM 25 mcg Arnavy, Marium 25 mcg FENTANYL given in lab by Marium Landeros RN via Peripheral IV. Ordered by Jina Juares. NTG (IC) 08/17/2017 2:34:11 PM 200 mcg Venu Decker 200 mcg NTG (IC) given in lab by Venu Decker, RT(R) via Intra-coronary. Ordered by Cornell Juares NTG (IC) 08/17/2017 2:38:07 PM 100 mcg Venu Decker 100 mcg NTG (IC) given in lab by Venu Decker RT(R) via Intra-coronary. Ordered by Cornell Juares NTG (IC) 08/17/2017 2:42:47 PM 100 mcg Brianne, Venu 100 mcg NTG (IC) given in lab by Venu Decker RT(R) via Intra-coronary. Ordered by Cornell Juares NTG (IC) 08/17/2017 2:44:34 PM 100 mcg Brianne, Venu 100 mcg NTG (IC) given in lab by Venu Decker RT(R) via Intra-coronary. Ordered by Cornell Juares PLAVIX 08/17/2017 2:52:06 PM 300 mg Marium Landeros 300 mg PLAVIX given in lab by Marium Landeros RN via Oral. Ordered by Jina Juares. Chronological Log Time Study Chronological Log 13:47:20 Patient arrived via Bed. 13:47:22 Patient Name, D.O.B, / Armband Verified By R.N. 13:47:24 Consent signed by the physician and the patient and verified by the [facility] staff. 13:47:25 Pre-op and post- op instructions given; patient acknowledges understanding of instructions . Vitals capture started with the following parameters, Patient=Adult, Interval=5 min, Initial P tvrrjix=143 mmHg, 13:52:45 Deflation Rate=5 mmHg, Cuff placed on Right Ankle 13:53:58 HR=77 bpm, JHPN=959/88 mmhg, SpO2=98.0 %, Resp=18 B/min, Pain=0, Kenisha=10, Huber=2 13:59:13 HR=60 bpm, PUAK=536/60 mmhg, SpO2=99.0 %, Resp=16 B/min, Pain=0, Huber=2 14:03:25 HR=70 bpm, FWDN=939/82 mmhg, SpO2=97.0 %, Resp=14 B/min, Pain=0, Huber=2 14:04:04 Patient has been NPO for More than 6Hrs. 14:04:06 Skin Breakdown- 14:05:52 Patient Warmer Placed on the Table. 14:05:55 Lena Prominences Protected 14:06:11 History and physical on the chart or being dictated. 14:06:50 MD arrived. 14:06:53 2 mg VERSED given in lab by Marium Landeros RN via Peripheral IV. Ordered by Juliano Juares 14:06:56 Bilateral groins prepped with 2% chlorhexidine, and draped after a 3 min. waiting time. 14:07:18 50 mcg FENTANYL given in lab by Marium Landeros RN via Peripheral IV. Ordered by Jina Juares. 14:08:28 HR=83 bpm, EBDE=612/77 mmhg, SpO2=99.0 %, Resp=13 B/min, Pain=0, Huber=2 14:09:57 Pressure channel 1 zeroed. Time Out. Correct patient, correct procedure, correct physician, power injector loaded, or not loaded with contrast with 14:13:08 surgical team present. Time Out Concurred by MD and individual staff in procedure. 14:13:23 1 mg VERSED given in lab by Marium Landeros RN via Peripheral IV. Ordered by uJliano Juares 14:13:29 HR=64 bpm, PQPQ=063/63 mmhg, SpO2=92.0 %, Resp=13 B/min, Pain=0, Huber=2 14:13:31 25 mcg FENTANYL given in lab by Marium Landeros RN via Peripheral IV. Ordered by Jina Juares. 14:13:52 Case Start 14:13:54 20 mL 1% XYLOCAINE given in lab by Jina Juares via Subcutaneous. Ordered by Fili Juares. 14:15:14 Access site was Right Femoral Artery. 14:15:21 A SHEATH, FR5 TERUMO (10CM) FR 5 was advanced into the Fem Art (right) using the Modified S eldinger technique. A PIGTAIL ANG. INFINITI CATHETER FR 5 was advanced over a wire. OMNIPAQUE, 350 MG, 150ML 150ML was used 14:15:57 for injections. Recorded Pressure: LV, HR=73, Condition=Condition 1 14:16:35 (Left Ventricle) LV 125/6/12 14:17:22 The LV was injected at 10 cc/sec for a total of 30. OMNIPAQUE, 350 MG, 150ML 150ML used. Recorded Pressure: LV, Ao, HR=66, Condition=Condition 1 14:18:56 (Left Ventricle) LV 127/-1/20, (Aorta) Ao 133/63/90 After removing the current catheter a JL 4.0 INFINITI CATHETER FR 5 was advanced over a WIRE, 3 MMJ .035 180CM 14:19:22 180CM. 14:19:38 HR=78 bpm, TYBC=493/63 mmhg, SpO2=93.0 %, Resp=13 B/min, Huber=4 14:20:30 The LCA was injected and visualized at various angles. OMNIPAQUE, 350 MG, 150ML 150ML used . After removing the current catheter a AR MOD DXTERITY CATHETER FR 5 was advanced over a WIRE, 3 MMJ .035 14:23:12 180CM 180CM. 14:23:25 HR=71 bpm, KRZN=164/67 mmhg, SpO2=94.0 %, Resp=16 B/min, Huber=4 14:24:02 The RCA was injected and visualized at various angles. OMNIPAQUE, 350 MG, 150ML 150ML used . 14:25:37 Catheter was removed 14:26:48 7000 units HEPARIN given in lab by Marium Landeros, CHIP via Peripheral IV. Ordered by Jina Williamson. 14:27:31 1 mg VERSED given in lab by Marium Landeros, CHIP via Peripheral IV. Ordered by Juliano Juares. 14:28:14 25 mcg FENTANYL given in lab by Marium Landeros, CHIP via Peripheral IV. Ordered by Jina Juares. 14:29:01 HR=74 bpm, GWBC=182/70 mmhg, SpO2=94.0 %, Resp=7 B/min, Huber=4 A SHEATH, FR6.5 PRELUDE 11CM FR 6.5 was exchanged in the Fem Art (right). This was necessary in order to 14:30:56 accomodate a larger catheter. A AR 1 SH GUIDE CATHETER FR 6 was advanced over a wire. OMNIPAQUE, 350 MG, 150ML 150ML was used for 14:31:48 injections. 14:32:43 Activated Clotting Time Drawn 14:33:25 HR=72 bpm, INVH=886/61 mmhg, SpO2=96.0 %, Resp=15 B/min, Huber=2 14:33:25 Reference ECG taken 14:33:56 A WIRE, BALANCE MIDDLEWEIGHT 190CM 190CM was inserted via Fem Art (right). 14:34:11 200 mcg NTG (IC) given in lab by Venu Decker, RT(R) via Intra-coronary. Ordered by Jina Briceno. A BALLOON, 2.0 X 10MM EUPHORA 10MM was inserted over WIRE, BALANCE MIDDLEWEIGHT 190CM 190CM via the 14:35:55 RCA Mid. 14:37:07 ACT (Normal Range 90-180) = 251 A BALLOON, 2.0 X 10MM EUPHORA 10MM over a WIRE, BALANCE MIDDLEWEIGHT 190CM 190CM in the R CA was 14:37:23 inflated using a 30 RUTH INDEFLATOR at 16 ruth for 30 sec. 14:38:01 Balloon Removed. 14:38:07 100 mcg NTG (IC) given in lab by Venu Decker RT(R) via Intra-coronary. Ordered by Jina Briceno. 14:38:22 HR=73 bpm, TAGB=490/67 mmhg, SpO2=92 %, Resp=17 B/min A STENT, 2.5 12MM BERTIN 2.5 12MM was advanced through a AR 1 SH GUIDE CATHETER FR 6 over a WIRE, BALANCE 14:41:00 MIDDLEWEIGHT 190CM 190CM. A STENT, 2.5 12MM BERTIN 2.5 12MM was deployed using a 30 RUTH INDEFLATOR at 12 atmospheres for 35 seconds in 14:41:41 the RCA Mid. 14:42:30 Delivery device removed 14:42:47 100 mcg NTG (IC) given in lab by Venu Decker RT(R) via Intra-coronary. Ordered by Jina Briceno. 14:43:28 HR=75 bpm, JYVY=315/58 mmhg, SpO2=92.0 %, Resp=14 B/min, Huber=2 14:44:34 100 mcg NTG (IC) given in lab by Venu Decker RT(R) via Intra-coronary. Ordered by Jina Briceno. 14:44:41 Wire removed 14:47:25 ANGIOSEAL, FR6 VIP FR 6 placement in the Fem Art (right) 14:48:20 HR=70 bpm, JRPS=005/75 mmhg, SpO2=93.0 %, Resp=13 B/min, Huber=2 14:50:49 Case End 14:50:52 Sterile dressing applied to site 14:50:54 No case complications noted. 14:50:59 Holding Area notified of successful intervention. 14:51:02 Bedside Report will be given. 14:52:06 300 mg PLAVIX given in lab by Marium Landeros RN via Oral. Ordered by Jina Juares. 14:53:26 HR=72 bpm, TWFT=740/64 mmhg, SpO2=96.0 %, Resp=9 B/min, Huber=2 14:53:51 Vitals capture stopped. 14:54:04 A Left Heart Cath was performed. 14:55:18 Implantable Device card placed in patient's chart. 14:58:34 Patient moved to [facility] End Study - Contrast Media Used In Study Contrast Total Opened (mL) Total Used (mL) Total Wasted (mL) Omnipaque 150 130 20 End Study - Maximum Contrast Load Max Contrast Load (mL) 572.2 End Study - Radiation Exposure Fluoro Time (minutes) 4.1 End Study - Patient Disposition Complications Transferred To Interventional Outcome No Telemetry Bed successful
[2017-08-17] MEDS ORDERED: SODIUM CHLOR 0.9% 1000 ML INJ 1,000 ML IV SCH (16:21)
[2017-08-17] MEDS ORDERED: NITROGLYCERIN 0.4 MG SL 25 TABS/BTL SL PRN (16:30)
[2017-08-17] MEDS ORDERED: ALBUTEROL SULFATE 90 MCG/ACT HFA 8 GM INHALER INH PRN (16:30)
[2017-08-17] MEDS ORDERED: TEMAZEPAM 15 MG CAP PO PRN (16:30)
[2017-08-17] MEDS ORDERED: ACETAMINOPHEN 325 MG TAB PO PRN (16:30)
--- NOTE | 2017-08-17 16:34 | EKG ---
Date Performed: 08/17/2017 Time Performed: 11:33:46 PTAGE: 71 years EKG: Sinus bradycardia. Lateral T wave changes are nonspecific Borderline ECG PREVIOUS TRACING : 04/03/2017 06.00 No significant change from previous tracing noted. DOCTOR: Norris Gonzalez Interpretating Date/Time 08/17/2017 16:32:10
[2017-08-17] MEDS ORDERED: INSULIN ASPART SUPPLEMENTAL SCALE SQ SCH (17:00)
[2017-08-17] MEDS: METOPROLOL TARTRATE 50 MG TAB PO SCH (20:53)
[2017-08-17] MEDS ORDERED: INSULIN DETEMIR 100 UNITS/ML VIAL SQ SCH (21:00)
[2017-08-17] MEDS ORDERED: ATORVASTATIN 80 MG TAB PO SCH (21:00)
[2017-08-17] MEDS ORDERED: DEXTROSE 50% IN WATER 50 ML VIAL(D50) IV PUSH PRN (22:15)
[2017-08-17] MEDS ORDERED: GLUCAGON 1 MG/ML VIAL OTHER PRN (22:15)
[2017-08-17] MEDS: LOW DOSE INSULIN NOVOLOG SUPPLEMENTAL SCALE SQ SCH (22:50)
--- NOTE | 2017-08-17 23:07 | EKG ---
Date Performed: 08/17/2017 Time Performed: 16:59:26 PTAGE: 71 years EKG: Sinus rhythm Lateral T wave changes are nonspecific Borderline ECG PREVIOUS TRACING : 08/17/2017 11.33 No significant change from previous tracing noted. DOCTOR: Norris Gonzalez Interpretating Date/Time 08/17/2017 23:06:37
[2017-08-18] VITALS (12 sets, daily range): BP systolic 139–141; BP diastolic 76–80; PULSE 60–84; RESP 17; TEMP 97.8–98.4; O2SAT 96–98
[2017-08-18 07:01] LABS: BASOPHIL % 0.4 % (0.0-2.0); EOSINOPHIL # 0.1 TH/MM3 (0-0.4); EOSINOPHIL % 1.2 % (0.0-4.0); HEMATOCRIT 42.6 % (39.0-51.0); HEMOGLOBIN 14.8 GM/DL (13.0-17.0); LYMPH % 19.4 % (9.0-44.0); MEAN CORPUSCULAR HGB CONC 34.7 % (32.0-36.0); MEAN PLATELET VOLUME 7.3 FL (7.0-11.0); MONO % 10.7 % (0.0-8.0); MONOCYTE # 1.1 TH/MM3 (0-0.9); NEUT % 68.3 % (16.0-70.0); PLATELET COUNT 164 TH/MM3 (150-450); RED BLOOD COUNT 4.63 MIL/MM3 (4.50-5.90); RED CELL DISTRIBUTION WIDTH 16.7 % (11.6-17.2); WHITE BLOOD COUNT 10.3 TH/MM3 (4.0-11.0)
[2017-08-18 07:27] LABS: CALCIUM 8.5 MG/DL (8.5-10.1); CREATININE 0.93 MG/DL (0.60-1.30)
[2017-08-18 07:29] LABS: CHOLESTEROL/ HDL RATIO 2.77 RATIO; HDL CHOLESTEROL 44.4 MG/DL (40.0-60.0)
[2017-08-18] MEDS: LOW DOSE INSULIN NOVOLOG SUPPLEMENTAL SCALE SQ SCH (08:36)
[2017-08-18] MEDS: METOPROLOL TARTRATE 50 MG TAB PO SCH (08:37)
[2017-08-18] MEDS ORDERED: ASPIRIN 81 MG CHEW TAB CHEW SCH (09:00)
[2017-08-18] MEDS ORDERED: CLOPIDOGREL 75 MG TAB PO SCH (09:00)
[2017-08-18] MEDS ORDERED: LISINOPRIL 10 MG TAB PO SCH (09:00)
--- NOTE | 2017-08-18 09:47 | HHI.DS ---
Discharge Summary Admission Date Discharge Date: Aug 18, 2017 Admitting Diagnosis NSTEMI, CAD (1) CAD (coronary artery disease) Diagnosis: Principal ICD Codes: I25.10 - Atherosclerotic heart disease of [place] coronary artery without angina pectoris (2) DM2 (diabetes mellitus, type 2) Diagnosis: Secondary ICD Codes: E11.9 - Type 2 diabetes mellitus without complications (3) HTN (hypertension) Diagnosis: Secondary ICD Codes: I10 - Essential (primary) hypertension Status: Acute (4) Dyspnea Diagnosis: Secondary ICD Codes: R06.00 - Dyspnea, unspecified Status: Acute (5) NSTEMI (non-ST elevated myocardial infarction) Diagnosis: Principal ICD Codes: I21.4 - Non-ST elevation (NSTEMI) myocardial infarction CBC/BMP: 08/18/17 0538 08/18/17 0538 Significant Findings Laboratory Tests Test 08/17/17 10:45 08/18/17 05:38 White Blood Count 12.8 TH/MM3 (4.0-11.0) Neutrophils (%) (Auto) 72.2 % (16.0-70.0) Monocytes (%) (Auto) 9.5 % (0.0-8.0) 10.7 % (0.0-8.0) Neutrophils # (Auto) 9.2 TH/MM3 (1.8-7.7) Monocytes # (Auto) 1.2 TH/MM3 (0-0.9) 1.1 TH/MM3 (0-0.9) Activated Partial Thromboplast Time 22.5 SEC (24.3-30.1) Random Glucose 140 MG/DL (74-106) 224 MG/DL (74-106) Chloride Level 108 MEQ/L (98-107) 108 MEQ/L (98-107) Anion Gap 4 MEQ/L (5-15) Estimat Glomerular Filtration Rate 87 ML/MIN (>89) 80 ML/MIN (>89) PE at Discharge GENERAL: awake, alert. no distress. SKIN: Warm and dry. HEAD: Atraumatic. Normocephalic. EYES: Pupils equal and round. No scleral icterus. No injection or drainage. ENT: No nasal bleeding or discharge. Mucous membranes pink and moist. NECK: Trachea midline. No JVD. CARDIOVASCULAR: Regular rate and rhythm. R groin site intact. RESPIRATORY: No accessory muscle use. Clear to auscultation. Breath sounds equal bilaterally. GASTROINTESTINAL: Abdomen soft, non-tender, nondistended. MUSCULOSKELETAL: Extremities without clubbing, cyanosis, or edema. No obvious deformities. NEUROLOGICAL: Awake and alert. No obvious cranial nerve deficits. Motor grossly within normal limits. Five out of 5 muscle strength in the arms and legs. Normal speech. PSYCHIATRIC: Appropriate mood and affect; insight and judgment normal. Hospital Course Mr. Kapadia was admitted for cardiac catheterization. He underwent stenting to the RCA. His post procedure course was uneventful. He was discharged home in stable condition. Pt Condition on Discharge: Stable Discharge Disposition: Discharge Home Discharge Instructions DIET: Follow Instructions for: Heart Healthy Diet Activities you can perform: See Additionl Instruction Activities to avoid: Lifting/Bending Additional Activity Instructio: no heavy lifting Follow up Referrals: Appointment for Follow Up @ cardiology Continued Medications: Albuterol 18 GM Inh (Ventolin Hfa 18 GM Inh) 90 Mcg/Act Aer 2 PUFF INH Q4-6H PRN for SHORTNESS OF BREATH, #1 INHALER 0 Refills Aspirin (Aspirin Low Dose) 81 Mg Chew 81 MG CHEW DAILY, TAB 0 Refills Atorvastatin (Atorvastatin) 80 Mg Tab 80 MG PO HS for cad, #30 TAB Clopidogrel (Clopidogrel) 75 Mg Tab 75 MG PO DAILY for Blood Clot Prevention, #30 TAB 0 Refills Insulin Aspart Inj (Novolog Inj) 100 Unit/Ml Inj 1 UNIT SQ ACHS SLIDING SCALE for dm for 30 Days, INJECTION Insulin Glargine Inj (Lantus Inj) 1,000 Unit/10 Ml Vial 60 UNITS SQ HS for Blood Sugar Management, VIAL 0 Refills Lisinopril (Lisinopril) 10 Mg Tab 10 MG PO DAILY, #30 TAB 0 Refills Metoprolol Tartrate (Metoprolol Tartrate) 50 Mg Tab 50 MG PO BID, #60 TAB 0 Refills Nitroglycerin SL (Nitrostat SL) 0.4 Mg Subl 0.4 MG SL Q5M PRN for CHEST PAIN, #5 TAB Merary Barker Aug 18, 2017 09:47
--- NOTE | 2017-08-18 12:48 | EKG ---
Date Performed: 08/18/2017 Time Performed: 06:04:38 PTAGE: 71 years EKG: Sinus rhythm Normal ECG PREVIOUS TRACING : 08/17/2017 16.59 No significant change from previous tracing noted. DOCTOR: Norris Gonzalez Interpretating Date/Time 08/18/2017 12:46:45
--- NOTE | 2017-08-19 22:23 | MA ---
cc: NOAH SEVILLA DATE 08/17/2017 INDICATIONS Unstable angina, class III angina, intermediate probability nuclear myocardial perfusion study. PROCEDURES PERFORMED 1. Retrograde left heart catheterization with left ventriculography and selective coronary angiography. 2. Angioplasty and stenting of the mid-right coronary artery. 3. Moderate sedation. ACCESS SITE Right femoral artery. EQUIPMENT USED 5-Malagasy pigtail catheter, 5-Malagasy JL-4 and AR modified coronary catheters. AR-1 guide with side holes, BMW wire, 2.0 x 10 mm compliant balloon for predilatation, 2.5 x 12 mm Manuel drug-eluting stent at 12 atmospheres. MEDICATIONS 1. Versed IV. 2. Fentanyl IV. 3. Heparin IV. 4. Nitroglycerin IC. 5. Plavix 300 milligrams p.o. CONTRAST Omnipaque 130 cc COMPLICATIONS None BLOOD LOSS Less than 10 cc. METHOD OF HEMOSTASIS Angio-Seal closure. RESULTS HEMODYNAMICS Heart rate 70 beats per minute, left ventricular end diastolic pressure 5 mmHg, left ventricle 130/5, aorta 130/63/90. LEFT VENTRICULOGRAPHY Left ventricular ejection fraction 55%, wall motion normal. No mitral regurgitation. CORONARY ANGIOGRAPHY Left main coronary artery patent. Left anterior descending artery has patent stent in the proximal portion and 30% stenosis in the mid portion. D1 has 30% proximal stenosis. D2 has 60% proximal stenosis. D3 has 40% ostial stenosis. Left circumflex artery is patent. OM1 is a very large branching vessel with patent stent in the main trunk of the vessel. Secondary OM1 branch has 70% in-stent restenosis. Distal secondary OM1 branch has 70% ostial stenosis. Right coronary artery is a dominant vessel with 95% stenosis in the mid portion, 30% stenosis in the proximal portion and 50 and 60% sequential stenosis in the distal portion. PDA patent. PLV patent. The stenosis in the right coronary was 95%. Mid RCA lesion length 8 mm. Pre DOROTHEA flow III, post DOROTHEA flow III. Post stenosis zero. Post intervention angiography revealed excellent patency of the stented segment and no evidence of dissection, thrombosis or distal embolization. DIAGNOSES 1. Coronary artery disease with severe 95% stenosis of the mid-right coronary artery. 2. Overall preserved left ventricular systolic function. 3. Successful angioplasty and stenting of the mid-right coronary artery. DISPOSITION Mr. Kapadia will be monitored on telemetry with serial EKGs and enzymes. We will continue and intensify aggressive modification of his cardiac risk factors since he also has moderate disease in multiple vessels. I recommend to continue long-term therapy with Plavix and aspirin. We will continue therapy for coronary artery disease including therapy for angina. He will be discharged home tomorrow if stable. I will see him back for followup in our office after discharge. MD KELLY Moore/KK /3:01 PM /10:01 PM MICHELLE
== END 2017-08-18 10:34 | disposition home or self-care (01) ==
LOC: HCAT 10:06 → HDIC 10:07 → HCIS 16:49 → HCAT 08-18 10:34
PROVIDERS: ATTEND Internal Medicine Interventional Cardiology
DX: I21.4 Non-ST elevation (NSTEMI) myocardial infarction (principal); I25.10 Atherosclerotic heart disease of native coronary artery without angina pectoris; I10 Essential (primary) hypertension; E11.9 Type 2 diabetes mellitus without complications
CPT/HCPCS: 80048; 80061; 82550; 82948; 85002; 85025; 85610; 85730; 92928; 93005; 93458; 99152; 99153; C1725; C1760; C1769; C1874; C1887; C1893; J1644; J1815; J2250; J3010; J7030; Q9967